=== PATIENT | female | born 1960 | race Caucasian/White ===

== ENCOUNTER 2017-09-23 11:26 | Day surgery (SDC) | payer MEDICAID, SELFPAY ==
[2017-09-23] VITALS (7 sets, daily range): BP systolic 98–113; BP diastolic 65–75; PULSE 68–81; RESP 16–18; TEMP 36.4–36.9; O2SAT 95–99; BMI 30.4
[2017-09-23] MEDS: Triamcinolone Acetonide 40 MG/ML Vial (12:54)
[2017-09-23] MEDS: Bupivacaine Mpf 0.5% 30 ML VIAL (13:11)
--- NOTE | 2017-09-23 13:18 | PCM.IMDPSTOP ---
Immediate Post-Op Note Date of Procedure: 09/23/17 Primary Surgeon/Physician: Timbo Guthrie DPM continuous absorption process operator: Timbo Guthrie Pre-Operative Diagnosis: plantar fasciitis right Post-Operative Diagnosis: plantar fasciitis, right foot. left foot pain Surgery/Procedure Performed:: plantar fascia injection, right foot Description of Surgical Findings:: consistent with injection Estimated Blood Loss: 0 ml Specimen's removed: none Drains: none Type of Anesthesia:: MAC ASA Class: ASA2 Mod Systematic Disease - Admit VTE Documentation VTE Present on Admission: No - n/a VTE Pharm Prophylaxis ordered?: No
--- NOTE | 2017-09-23 13:22 | OP.PN_ITS ---
Immediate Post-Op Note Date of Procedure: 09/23/17 Primary Surgeon/Physician: Timbo Guthrie DPM senior talent acquisition specialist: Timbo Guthrie Pre-Operative Diagnosis: plantar fasciitis right Post-Operative Diagnosis: plantar fasciitis, right foot. left foot pain Surgery/Procedure Performed:: plantar fascia injection, right foot Description of Surgical Findings:: consistent with injection Estimated Blood Loss: 0 ml Specimen's removed: none Drains: none Type of Anesthesia:: MAC ASA Class: ASA2 Mod Systematic Disease - Admit VTE Documentation VTE Present on Admission: No - n/a VTE Pharm Prophylaxis ordered?: No
--- NOTE | 2017-09-23 13:40 | RAD_ITS ---
STUDY: X-RAY - LEFT FOOT CLINICAL: Female, 57 years old. Pain. TECHNIQUE: 3 view(s) of the foot. COMPARISON: None. FINDINGS: Normal talus, calcaneus, and tarsal bones. Normal visualized subtalar, talonavicular, calcaneocuboid, tarsal and tarsometatarsal articulations. Normal metatarsi. Normal metatarsophalangeal joint of the great toe. There is a bipartite fibula sesamoid. Normal interphalangeal joint of the great toe. Normal phalanges of the great toe. Normal second through fifth metatarsophalangeal joints. Normal interphalangeal joints and phalanges of the lesser toes. The soft tissue structures are unremarkable. RAD/Foot min 3 Views IMPRESSION: Normal x-ray examination of the foot. Electronically Signed: Asad Cardona MD at 15:11 EST Tel [phone], Service support ,
--- NOTE | 2017-09-24 13:42 | OP.PCM_ITS ---
Report of Operation Date of Procedure: 09/23/17 Pre-Operative Diagnosis: plantar fasciitis right Post-Operative Diagnosis: plantar fasciitis, right foot. left foot pain Surgery/Procedure Performed:: plantar fascia injection, right foot Description of Surgical Findings:: consistent with injection power brake rebuilder: Timbo Guthrie Type of Anesthesia:: MAC Specimen's removed: none Drains: none Estimated Blood Loss (mL): 0 ml Description of Procedure: patient is a very pleasant 57 year old female who suffers from chronic right heel pain for many months. she has tried stretching, physical therapy, icing, nsaids prn and has recently purchased powerstep orthotics that were ordered months ago. she continues to have pain to right heel. I have ordered mri that shows chronic thickening of plantar fascia. I have discussed right plantar fascial injection. I have discussed this being another form of conservative care for plantar fasciitis. she is interested in pursuing but she is very apprehensive regarding needles and would prefer to be asleep if she is going to have this done. I did discuss with anesthsia department who agrees to proceed. all risks and benefits and alternatives were discussed. patient understands that this injection does not guarantee relief of her symptoms. all questions have been answered. no guarantees expressed patient was transferred from pre-op holding area to operating room and placed on operating room in supine position. she was placed under mac anesthesia. time out was performed. patient properly identified. procedure site marked. Under aseptic technique an injection was performed to the right heel using a mixture of ? cc of 0.5 % Marcaine plain, ? of kenalog and ? cc of dexamethazone band aid was applied. patient awakened and found to be in stable condition. she did start complaining of left foot pain on day of injection. will order xray in pacu. f/u in 1 month
== END 2017-09-23 14:15 | disposition home or self-care (01) ==
LOC: SDC 11:27 → AC 11:28
PROVIDERS: Family Provider Family Medicine; PCP Family Medicine; Visit Provider Podiatrist Foot & Ankle Surgery
PROC: (CPT 20605; principal; 2017-09-23 12:50)
DX: M72.2 Plantar fascial fibromatosis (principal); M79.672 Pain in left foot; F41.9 Anxiety disorder, unspecified; F31.9 Bipolar disorder, unspecified; K21.9 Gastro-esophageal reflux disease without esophagitis; Z79.899 Other long term (current) drug therapy; Z87.891 Personal history of nicotine dependence; J45.909 Unspecified asthma, uncomplicated; Z55.0 Illiteracy and low-level literacy; M19.90 Unspecified osteoarthritis, unspecified site
CPT/HCPCS: 20550; 73630; J7120

== ENCOUNTER 2018-02-06 09:56 | Emergency (ER) | payer MEDICAID, SELFPAY ==
[2018-02-06 09:57] VITALS: BP 117/72; PULSE 86; RESP 17; TEMP 37.2; O2SAT 94
--- NOTE | 2018-02-06 10:10 | RAD_ITS ---
STUDY: X-RAY - RIGHT KNEE REASON FOR EXAM: Female, 57 years old. Twisting injury. Medial pain. TECHNIQUE: 3 view(s) of the knee. COMPARISON: None. FINDINGS: Normal visualized distal femur. Normal visualized proximal tibia and fibula. Normal proximal tibiofibular articulation. Narrowing of the medial femorotibial compartment. Normal lateral femorotibial compartment. Normal patellofemoral articulation. The soft tissue structures are unremarkable. RAD/Knee 3 Views IMPRESSION: Mild narrowing of the medial femorotibial compartment due to chondromalacia of the right knee. Electronically Signed: Josh Garcia MD at 10:42 EDT , Service support ,
[2018-02-06] MEDS: HYDROcodone Bitartrate/Apap 5/325 Tablet PO (10:14)
--- NOTE | 2018-02-06 10:51 | ED.VISSUMM ---
- ER Visit Summary Date of Service: 02/06/18 Chief Complaint: [Injury right knee] History of Present Illness: The patient is a 57 F [presents to the emergency department with complaint of an injury to her right knee that occurred yesterday. Patient states she was at [employer] jumping on a trampoline and as she was getting off her knee bent in medially and her right ankle went out to the side causing her severe pain in her right knee. Patient unable to bear weight afterwards. Patient had severe pain throughout the night.] Physical Examination: [Right knee-patient has no obvious effusion or soft tissue swelling. Patient has tenderness over the medial joint line on exam. She has good range of motion flexion extension of the knee. She is neurovascular intact distally with normal station normal cap refill ligamentous exam very difficult due to the fact the patient does not tolerate exam well.] Test Results: [X-rays of the left knee showed mild narrowing of the medial femoral-tibial compartment due to chondromalacia.] Emergency Department Course and Treatment: [Patient was given crutches and a knee immobilizer as well as one [place]] Treatment Plan: [Patient has appointment with orthopedics for follow-up in 4-5 days.] Disposition: [Discharged home in stable condition] Impression: [Right knee sprain-possible internal derangement] This note was generated with [employer] dictation software. It may contain incorrect words, spelling, and punctuation that were not noted in review of the chart prior to signing ED Disposition - Plan for ED Patient: Chief Complaint: Lower Extremity Injury Referrals: Jef Jimenez MD [Primary Care Provider] -
--- NOTE | 2018-02-06 10:53 | ED.DEP ---
ED Disposition - Plan for ED Patient: Chief Complaint: Lower Extremity Injury Instructions: ED Meniscal Injury Knee Poss Prescriptions: Hydrocodone/Acetaminophen [[place] 5-325 Tablet] 1 - 2 ea PO 4X/DAY PRN PRN 5 Days #20 tab PRN Reason: Pain Referrals: Jef Jimenez MD [Primary Care Provider] - Mk Pantoja DO [STAFF PHYSICIAN] - 3-5 Days
[2018-02-06 11:31] VITALS: BP 123/73; PULSE 70; RESP 18; O2SAT 96
== END 2018-02-06 11:37 | disposition home or self-care (01) ==
LOC: ED 10:55
PROVIDERS: Emergency Provider Emergency Medicine; Family Provider Family Medicine; PCP Family Medicine
DX: S83.91XA Sprain of unspecified site of right knee, initial encounter (principal); M94.261 Chondromalacia, right knee; X50.1XXA Overexertion from prolonged static or awkward postures, initial encounter; Y93.44 Activity, trampolining; Y92.9 Unspecified place or not applicable
CPT/HCPCS: 73562; 99284

== ENCOUNTER 2018-04-30 13:31 | Emergency (ER) | payer MEDICAID, SELFPAY ==
[2018-04-30 13:31] VITALS: BP 132/78; PULSE 92; RESP 18; TEMP 36.5; O2SAT 97
[2018-04-30 13:33] VITALS: BP 132/78; PULSE 90; RESP 18; TEMP 36.5; O2SAT 97; BMI 30.3
--- NOTE | 2018-04-30 15:32 | ED.DCSUM_ITS ---
- ER Visit Summary Date of Service: 04/30/18 Chief Complaint: Bloody mucousy mushy stool History of Present Illness: The patient is a 58 F who contacted her primary care physician and informed him that she was having bloody mucousy mushy stool and he recommended she present to the emergency department for evaluation. She had one episode prior to arrival. She has not felt well for the past 3 days. She states she is achy and feels rundown. She reports she had an influenza vaccine 5 days ago. She does complain of headache without photophobia, blurred vision, change in vision or double vision. She reports right ear pain. She denies muffled or decreased hearing or tinnitus. She does complain of sore throat. She denies change in voice or difficulty swallowing. She reports intermittent chest pain that is not exertional related for the past 1.5 years. She does report nausea without vomiting. She does report cough which is nonproductive. She denies orthopnea or PND. She denies dyspnea or dyspnea on exertion. She states she has a thumping sensation which she localizes to the suprapubic region. She denies dysuria, frequency, urgency or hematuria. She denies history of inflammatory bowel disorder. There is a remote history of diverticulitis. She does report family history of autoimmune disorder. She reports warm sensation with sweats for the past 1-1/2 years. She denies weight loss. She had a 15 pound weight gain in the past month and a 45 pound weight gain in the past 2-3 months. She denies any joint swelling or pain. She denies rash or any skin lesions. Physical Examination: Vital signs noted and blood pressure slightly elevated 132/78. Head is atraumatic normocephalic. Pupils are equal round reactive. Extraocular muscles are intact. TMs are pearly white with landmarks noted. Nares patent with no drainage. Posterior pharynx without erythema or exudate. Uvula is midline. There is no dysphonia or dysphasia. Tongue and buccal mucosa are dry trachea is midline. There is no stridor with auscultation of the neck. Heart is regular without murmur, gallop or rub. S1 and S2 are normal. Lungs are clear to auscultation with good movement of air bilaterally. There is no reproducible chest pain. Abdomen is soft nontender with diminished bowel sounds and minimal discomfort to deep palpation suprapubic region. There is no CVA tenderness noted. There are no lesions or rash noted. Patient is alert and oriented ?3. Motor is 5 over 5. Sensory is intact. DTRs are symmetric with no clonus or Babinski sign. Cranial 2 through 12 are intact. Cerebellar testing is normal. There is no asymmetry, swelling, discoloration, leg vein distention, palpable cords or tenderness along the distribution of the deep venous system. Distal pulses are palpable upper and lower extremity and symmetric. Test Results: CBC, conference of metabolic panel are unremarkable. Urine macro is positive for leukoesterase and blood 25 and 10 respectively. Microscopic is negative. Emergency Department Course and Treatment: To evaluate patient's constellation of symptoms CBC, CMP and UA were obtained. The bloody mucousy mushy stool may be related to the fact that her puppy has been ill with profuse diarrhea. Her dog is also ill with green snot coming from his nose when he coughs. Clinically patient is dehydrated with dry tongue and mucosa. She received 1 L of normal saline. Treatment Plan: Patient was reassessed at 1645. She is smiling in no distress. Her symptoms resolved. She was informed of results. She was informed that she should buy gloves when she cleans up after her dog since the dog is ill with diarrhea. And she was informed that the aches and other symptoms she is having is a reaction to the flu shot. Disposition: Discharged to home with spouse in stable and improved condition Impression: 1. Diarrhea 2. Mild dehydration 3. Adverse reaction to flu vaccine This note was generated with [employer] dictation software. It may contain incorrect words, spelling, and punctuation that were not noted in review of the chart prior to signing ED Disposition - Plan for ED Patient: Disposition: Home or Assisted Living Chief Complaint: GI Bleed Instructions: ED Hematochezia Stable, ED Diarrhea Viral, Flu Shots for Adults Referrals: Jef Jimenez MD [Primary Care Provider] - As Needed
[2018-04-30 15:45] LABS: Hematocrit 41.7 % (37-47); Hemoglobin 14.2 g/dl (12.0-15.0); Mean Corp Hgb Conc 34.1 g/gl (32-36); Mean Corpuscular Hgb 30.5 pg (27.0-32.0); Mean Corpuscular Volume 89.7 fL (81-99); Mean Platelet Vol. 8.8 fl (6.2-12.0); Platelet Count 239 K/mm3 (150-450); RBC Distribution Width CV 12.8 % (11.6-14.6); RBC Distribution Width SD 42.1 fl (35.1-43.9); Red Blood Count 4.65 M/mm3 (4.2-5.4)
[2018-04-30 15:46] LABS: Scan Indicated on CBC? Y/N NO
[2018-04-30] MEDS: 0.9% Normal Saline 1,000 ML 1000 ML IV (15:47)
[2018-04-30 15:55] LABS: Bacteria 0 SEEN /hpf (None Seen); Mucous, Urine 0 SEEN /hpf (<or=2+); Red Blood Cells-Urine 0 SEEN /hpf (0-5); Squamous Epithelial Cells - UA 0 SEEN /hpf (5-10); White Blood Cells 0 SEEN /hpf (0-5)
[2018-04-30 16:00] LABS: AST(SGOT) 24 U/L (15-37); Alanine Aminotransfer ALT/SGPT 48 U/L (13-56); Albumin, Serum 3.9 g/dL (3.2-5.0); Alkaline Phosphatase 104 U/L (45-117); Anion Gap 5 (5-15); BUN 17 mg/dL (7-18); BUN/Creat Ratio 26.3 RATIO (10-20); Calcium,Total 9.5 mg/dL (8.5-10.1); Chloride 105 mmol/L (98-107); Creatinine, Serum 0.65 mg/dL (0.55-1.02); EST Glomerular Filtration Rate 100 mL/min (>60); Est Glom Filt Rate - Afr Amer 121 mL/min (>60); Estimated Creatinine Clearance 82.46 ml/min; Globulin 3.9 g/dL (2.2-4.2); Glucose 92 mg/dL (74-106); Protein, Total 7.8 g/dL (6.4-8.2); Sodium Level 139 mmol/L (136-145)
[2018-04-30 16:20] LABS: Color, Urine Yellow (Yellow); Glucose, Dipstick Normal (Normal); Ketone-Dipstick Negative (Negative); Leukocyte Esterase-Dipstick 25 /ul (Negative); Nitrite-Dipstick Negative (Negative); Occult Blood-Urine 10 /ul (Negative); Protein-Dipstick Negative (Negative); Specific Gravity, Urine 1.015 (1.002-1.030); Urine Bilirubin Dipstick Negative (Negative); Urine Clarity Cloudy (Clear); Urine Urobilinogen Normal (Normal)
[2018-04-30 16:47] LABS: Amorphous Sediment 2+
[2018-04-30 17:06] VITALS: BP 146/83; PULSE 81; RESP 16; O2SAT 98
== END 2018-04-30 17:07 | disposition home or self-care (01) ==
PROVIDERS: Emergency Provider Emergency Medicine; Family Provider Family Medicine; PCP Family Medicine
DX: R19.7 Diarrhea, unspecified (principal); E86.0 Dehydration; T50.B95A Adverse effect of other viral vaccines, initial encounter; H92.01 Otalgia, right ear; J34.89 Other specified disorders of nose and nasal sinuses; J02.9 Acute pharyngitis, unspecified; R05 Cough; R11.0 Nausea; R10.9 Unspecified abdominal pain; E66.9 Obesity, unspecified; F41.9 Anxiety disorder, unspecified; K21.9 Gastro-esophageal reflux disease without esophagitis; Z87.19 Personal history of other diseases of the digestive system; Z87.891 Personal history of nicotine dependence
CPT/HCPCS: 80053; 81001; 85027; 96360; 99283; J7030; A4216

== ENCOUNTER 2018-06-04 10:46 | Emergency (ER) | payer MEDICAID, SELFPAY ==
[2018-06-04 10:47] VITALS: BP 138/79; PULSE 76; RESP 18; TEMP 36.6; O2SAT 99; BMI 27.8
--- NOTE | 2018-06-04 10:50 | ED.RN ---
NOTE PT DROVE SELF TO ED TALKING ON PHONE IN TRIAGE.
--- NOTE | 2018-06-04 11:13 | ED.VISSUMM ---
- ER Visit Summary Date of Service: 06/04/18 Chief Complaint: Headache History of Present Illness: The patient is a 58 F no significant past medical history. Currently the patient for the last 3 weeks has been on a strict weight loss program. She takes in only 700 meli a day. States she has been feeling dehydrated. Was actually seen in the ER for dehydration a week or so ago. States 5 days ago she awoke in the morning with a headache but not because of the headache. She has had a diffuse headache since that time. She denies any falls or head trauma. She is on no blood thinners. She denies any fever. No neck pain. No neurological changes. No weakness or numbness. No ataxia. There is no significant family history of intracranial bleeds or aneurysms. She does not have a significant history for headaches. She also requested that I check some labs due to the diet she is on. Physical Examination: Well-appearing middle-age female. No acute distress. Vital signs are stable afebrile. H EENT exam unremarkable. Pupils round reactive light. Extra motions are intact. No facial droop. Normal speech. No facial or scalp trauma. Neck nontender. No meningismus. No lymphadenopathy. Lungs clear to auscultation bilaterally. Heart regular rate and rhythm rate about 75 no murmur. Abdomen soft nontender. Patient moving all 4 extremities. The neurovascular intact. She has equal symmetrical 5 out of 5 dye machine tender strength. Dorsi and plantar flexion intact. Back nontender. Skin unremarkable. Neurologically she is awake alert. Acting appropriately. NIH is 0. Fingertip to nose and heel to sep[place]a all within normal limits. Test Results: CBC is normal with a white count of 4. Hemoglobin of 14. Electrolytes unremarkable normal BUN and creatinine. Normal gap. Glucose 71. Emergency Department Course and Treatment: Patient treated with a liter of normal saline IV Toradol and Zofran. Repeat exam patient is doing well at 1224. Headache is improving. Neurologically she remains intact. Treatment Plan: Fluids and rest. Tylenol Motrin for pain. Disposition: Discharge Impression: Acute cephalgia This note was generated with [employer] dictation software. It may contain incorrect words, spelling, and punctuation that were not noted in review of the chart prior to signing ED Disposition - Plan for ED Patient: Chief Complaint: Headache Referrals: Jef Jimenez MD [Primary Care Provider] -
--- NOTE | 2018-06-04 11:16 | ED.DCSUM_ITS ---
- ER Visit Summary Date of Service: 06/04/18 Chief Complaint: Headache History of Present Illness: The patient is a 58 F no significant past medical history. Currently the patient for the last 3 weeks has been on a strict weight loss program. She takes in only 700 meli a day. States she has been feeling dehydrated. Was actually seen in the ER for dehydration a week or so ago. States 5 days ago she awoke in the morning with a headache but not because of the headache. She has had a diffuse headache since that time. She denies any falls or head trauma. She is on no blood thinners. She denies any fever. No neck pain. No neurological changes. No weakness or numbness. No ataxia. There is no significant family history of intracranial bleeds or aneurysms. She does not have a significant history for headaches. She also requested that I check some labs due to the diet she is on. Physical Examination: Well-appearing middle-age female. No acute distress. Vital signs are stable afebrile. H EENT exam unremarkable. Pupils round reactive light. Extra motions are intact. No facial droop. Normal speech. No facial or scalp trauma. Neck nontender. No meningismus. No lymphadenopathy. Lungs clear to auscultation bilaterally. Heart regular rate and rhythm rate about 75 no murmur. Abdomen soft nontender. Patient moving all 4 extremities. The neurovascular intact. She has equal symmetrical 5 out of 5 lighter captain strength. Dorsi and plantar flexion intact. Back nontender. Skin unremarkable. Neurologically she is awake alert. Acting appropriately. NIH is 0. Fingertip to nose and heel to sepul[place]a all within normal limits. Test Results: CBC is normal with a white count of 4. Hemoglobin of 14. Electrolytes unremarkable normal BUN and creatinine. Normal gap. Glucose 71. Emergency Department Course and Treatment: Patient treated with a liter of normal saline IV Toradol and Zofran. Repeat exam patient is doing well at 1224. Headache is improving. Neurologically she remains intact. Treatment Plan: Fluids and rest. Tylenol Motrin for pain. Disposition: Discharge Impression: Acute cephalgia This note was generated with [employer] dictation software. It may contain incorrect words, spelling, and punctuation that were not noted in review of the chart prior to signing ED Disposition - Plan for ED Patient: Chief Complaint: Headache Referrals: Jef Jimenez MD [Primary Care Provider] -
[2018-06-04] MEDS: 0.9% Normal Saline 1,000 ML 1000 ML IV (11:27)
[2018-06-04] MEDS: Ondansetron 4 MG/2 ML Vial IV (11:27)
[2018-06-04] MEDS: Ketorolac 30 MG/ML Syringe IV (11:27)
[2018-06-04 11:35] LABS: Absolute Lymphocyte Count 1.63 X10^3/ul (0.83-4.51); Absolute Neutrophil Count 2.1 X10^3/uL (2.0-7.7); Basophil# 0.05 X10^3/uL; Basophil% 1.2 % (0-1); Eosinophils% 4.7 % (0-5); Hemoglobin 14.6 g/dl (12.0-15.0); Lymphocyte # 1.63 X10^3/ul (4.0); Lymphocyte % 38.2 % (19-41); Mean Corp Hgb Conc 33.2 g/gl (32-36); Mean Corpuscular Hgb 29.8 pg (27.0-32.0); Mean Corpuscular Volume 89.8 fL (81-99); Mean Platelet Vol. 9.8 fl (6.2-12.0); Monocyte# 0.26 X10^3/uL; Monocyte% 6.1 % (0-10); Neutrophil # 2.13 X10^3/uL (2.7-7.7); Neutrophil % 49.8 % (47-70); Platelet Count 195 K/mm3 (150-450); RBC Distribution Width SD 42.4 fl (35.1-43.9); White Blood Count 4.3 K/mm3 (4.4-11.0)
[2018-06-04 11:36] LABS: POSITIVE COUNT NO; POSITIVE DIFFERENTIAL NO; POSITIVE MORPHOLOGY NO
[2018-06-04 11:45] LABS: Anion Gap 11 (5-15); BUN 10 mg/dL (7-18); BUN/Creat Ratio 16.4 RATIO (10-20); Calcium,Total 9.5 mg/dL (8.5-10.1); Chloride 104 mmol/L (98-107); Creatinine, Serum 0.61 mg/dL (0.55-1.02); EST Glomerular Filtration Rate 107 mL/min (>60); Est Glom Filt Rate - Afr Amer 130 mL/min (>60); Estimated Creatinine Clearance 87.87 ml/min; Glucose 71 mg/dL (74-106); Potassium 3.8 mmol/L (3.5-5.1); Sodium Level 140 mmol/L (136-145)
--- NOTE | 2018-06-04 12:26 | ED.DEP ---
ED Disposition - Plan for ED Patient: Disposition: Home or Assisted Living Chief Complaint: Headache Instructions: ED Cephalgia Unspecified Referrals: Jef Jimenez MD [Primary Care Provider] - 3-5 Days if not improving Additional Instructions: Plenty of fluids and rest. You know your on the diet you may to increase your caloric intake daily. Follow-up your primary care physician if not improving.
[2018-06-04 12:52] VITALS: BP 108/67; PULSE 59; RESP 14; O2SAT 99
--- NOTE | 2018-06-04 17:23 | ED.RN ---
Pt called in after leaving stating she still had a headache. I looked up Dr Rausch's dictation and encouraged pt ro increase fluids and try tylenol as instructed. She agreed. i also encouraged pt to consider increasing her daily calorie intake as it was dictated to be 700cal/day.
== END 2018-06-04 12:53 | disposition home or self-care (01) ==
PROVIDERS: Emergency Provider Emergency Medicine; Family Provider Family Medicine; PCP Family Medicine
DX: R51 Headache (principal)
CPT/HCPCS: 80048; 85025; 96361; 96374; 96375; 99283; J7030; A4216; J2405

== ENCOUNTER 2018-07-23 04:58 | Emergency (ER) | payer MEDICAID, SELFPAY ==
[2018-07-23 04:59] VITALS: BP 156/91; PULSE 72; RESP 16; TEMP 36.6; O2SAT 100; BMI 25.7
[2018-07-23] MEDS: Naproxen 500 MG Tablet PO (05:19)
--- NOTE | 2018-07-23 05:30 | RAD_ITS ---
STUDY: X-RAY - LEFT SHOULDER REASON FOR EXAM: Female, 58 years old. Patient fell. Pain TECHNIQUE: 4 view(s) of the shoulder. COMPARISON: None. FINDINGS: Normal glenohumeral articulation. Normal acromioclavicular joint. Normal acromion. Normal humeral head and visualized proximal humerus. The soft tissue structures are unremarkable. Normal visualized pulmonary apex. RAD/Shoulder min 2 Views IMPRESSION: Normal x-ray examination of the shoulder. No acute fracture Electronically Signed: Prudencio Ramos MD at 5:51 EST Tel , Service support ,
--- NOTE | 2018-07-23 05:30 | RAD_ITS ---
STUDY: X-RAY - RIGHT HIP REASON FOR EXAM: Female, 58 years old. Patient fell TECHNIQUE: 2 views of the hip. COMPARISON: None. FINDINGS: Normal femoral head, neck, intertrochanteric region and visualized proximal femur. Normal acetabulum. Normal hip joint. Normal visualized superior and inferior pubic rami and ischial tuberosities. RAD/HIP, UNI W/ Pelvis 2-3 Views IMPRESSION: Normal x-ray examination of the hip. No fracture Electronically Signed: Prudencio Ramos MD at 5:52 EST Tel , Service support ,
--- NOTE | 2018-07-23 06:06 | ED.VISSUMM ---
- ER Visit Summary Date of Service: 07/23/18 Chief Complaint: Right hip pain History of Present Illness: The patient is a 58 F who presents with right hip pain. She also complains of left shoulder pain. She initially injured her right hip when she stepped into a hole back in January. She had been doing better. However she was dancing 4 days ago and fell reinjuring her right hip. She complains of pain in the right groin. However she also complains of some lower back and buttock pain with radiation down the right leg. She also complains of pain to her left shoulder and states that something was sticking up and points to her AC joint. She has not taken any medications. She describes her pain as excruciating. No fevers chest pain shortness of breath abdominal pain. No loss of bowel or bladder control. No paresthesias weakness or loss of function. Physical Examination: Afebrile hypertensive but vitals otherwise unremarkable Patient appears anxious Heart regular rate and rhythm Lungs clear Active full range of motion of the left shoulder she does have some tenderness over the AC joint Active full range of motion of the right lower extremity 5 out of 5 dorsiflexion, plantarflexion, extensor hallucis longus, easily palpable dorsalis pedis pulse, normal sensation to light touch, active full range of motion of the hip although she does have some pain with flexion she has no focal tenderness Patient has some pain over the right SI joint Test Results: X-rays were obtained of the left shoulder and the right hip and pelvis. Both are normal. Emergency Department Course and Treatment: Patient was given naproxen here for pain with improvement of symptoms. I believe the patient has left shoulder sprain and right hip sprain. With the pain in her buttock and going down her right leg she likely has a component of lumbar radiculopathy as well. Patient was given a prescription for naproxen and advised on supportive care. She understands to return for new or worsening symptoms and otherwise to follow-up with her primary care physician. She is agreeable to this plan. Patient discharged. Treatment Plan: [] Disposition: Discharge Impression: Left shoulder sprain Right hip sprain This note was generated with [employer] dictation software. It may contain incorrect words, spelling, and punctuation that were not noted in review of the chart prior to signing ED Disposition - Plan for ED Patient: Chief Complaint: Lower Extremity Injury Referrals: Jef Jimenez MD [Primary Care Provider] -
--- NOTE | 2018-07-23 06:09 | ED.DEP ---
ED Disposition - Plan for ED Patient: Chief Complaint: Lower Extremity Injury Instructions: ED Sprain Hip, ED Sprain Shoulder Referrals: Jef Jimenez MD [Primary Care Provider] -
[2018-07-23 06:16] VITALS: BP 139/74; PULSE 91; RESP 16; O2SAT 99
--- NOTE | 2018-07-23 06:17 | ED.RN ---
THIS NURSE REVIEWED D/C INSTRUCTIONS WITH PT. PT VERBALIZED UNDERSTANDING OF INSTRUCTIONS. PT DENIES FURTHER NEEDS OR QUESTIONS AT THIS TIME. PT AMBULATES FROM ROOM ON OWN WITHOUT ASSISTANCE FROM STAFF
== END 2018-07-23 06:18 | disposition home or self-care (01) ==
LOC: ED 05:41
PROVIDERS: Emergency Provider Emergency Medicine; Family Provider Family Medicine; PCP Family Medicine
DX: S43.402A Unspecified sprain of left shoulder joint, initial encounter (principal); S73.101A Unspecified sprain of right hip, initial encounter; W19.XXXA Unspecified fall, initial encounter; Y93.41 Activity, dancing; Y92.9 Unspecified place or not applicable
CPT/HCPCS: 73030; 73502; 99283

== ENCOUNTER 2018-09-22 10:30 | Outpatient (RCR) | payer MEDICAID, SELFPAY ==
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
--- NOTE | 2019-02-23 11:35 | HP.PTDCNRP_ITS ---
HP - Discharge Summary (1) - Patient Information CANDACE REYES was seen in my office for initial evaluation on 09/07/18. The following Plan of Care was established for this patient: Initial Frequency: 2x /Week Initial Duration: 4 Weeks - Anticipated Interventions Patient/Client Instruction: Educate patient on: Condition, Plan of Care For the Purpose of:: To decrease pain, To increase ROM, To improve muscle perf ormance and motor function, To improve ability to perform ADL's, To increase tolerance to activity/condition/position, To improve ability of physical actions for home/community/work/leisure, To improve gait and locomotor functions, To improve health of tissue, To decrease soft tissue restriction, To increase flexibility/ROM, To improve ability to perform tasks related to life management Therapeutic Exercise to Include: Strength training, Body mechanics, Postural training, Flexibilty training, In an aquatic setting, Dynamic Lumbar Stabilization, Ezio Exercises For the Purpose of:: To decrease pain, To increase ROM, To improve muscle performance and motor function, To improve ability to perform ADL's, To increase tolerance to activity/condition/position, To improve ability of physical actions for home/community/work/leisure, To improve health of tissue, To decrease soft tissue restriction, To increase flexibility/ROM, To improve ability to perform tasks related to life management This patient was last seen in our office 09/22/18. Pertinent comments regarding their Physical therapy will appear below: Patient was seen for PT in [facility] 1 visits for diagnosis of low back pain and weakness.Thus patient d/c after NS. At this point I will be discontinuing this patient from physical therapy. I would be happy to see this patient again in the future if found appropriate by the physician. Thank you! Tomasz Guido, PT, Cert MDT, OCS
== END 2018-09-22 19:00 | disposition home or self-care (01) ==
LOC: PT 10:30
PROVIDERS: Family Provider Family Medicine; PCP Family Medicine; Referring Provider Anesthesiology Pain Medicine; Visit Provider Anesthesiology Pain Medicine
DX: M54.5 Low back pain (principal); M79.606 Pain in leg, unspecified; R53.1 Weakness
CPT/HCPCS: 97110; 97162; 97530

== ENCOUNTER 2019-04-12 08:26 | Emergency (ER) | payer MEDICAID, SELFPAY ==
[2019-04-12 08:27] VITALS: BP 106/77; PULSE 100; RESP 17; TEMP 36.9; O2SAT 97; BMI 21.4
--- NOTE | 2019-04-12 08:43 | RAD_ITS ---
STUDY: X-RAY CHEST REASON FOR EXAM: Female, 59 years old. 3 day history of wheezing and productive cough. Chest pain. TECHNIQUE: PA and lateral views of the chest. COMPARISON: Comparison is made with prior study dated January 31, 2017. FINDINGS: There now is evidence of increased markings in both lower lobes. This is worse in the lingular segment of the left upper lobe. An infectious process should be rule out. Follow-up is recommended. Hyperinflation. There is no demonstrated pleural abnormality. Normal size heart. Normal mediastinum and kendrick. Normal visualized pulmonary arteries. There is atherosclerotic tortuosity of the aortic arch and descending thoracic aorta. Levoscoliosis and degenerative changes of the lumbar spine. Normal visualized ribs, clavicles, and shoulders. Prior cholecystectomy. RAD/Chest PA and Lateral IMPRESSION: Increased markings in both lung bases worse in the lingular segment of the left upper lobe. Follow-up is recommended. Electronically Signed: Asad Cardona, at 10:03 EDT , Service support ,
--- NOTE | 2019-04-12 08:48 | ED.VIS.GEN ---
History of Present Illness Chief Complaint: Chest Pain Informant: Patient Onset: Days Context: Sudden Onset Timing: Intermittent Quality: Productive cough and pleuritic chest pain Location: Anterior central chest Current Severity: Mild Maximum Severity: Severe Worsened by: Turning to the right or left, coughing and deep breathing Relieved by: Nothing Associated Symptoms: Productive cough and wheezing Narrative: Patient is a 59-year-old female with past medical history of asthma who is a non-smoker and presents with chest pain that is central and anterior with pleuritic and muscular component for the past 2 to 3 days. She has had a cough for the past several days. States the cough is productive. She has not used her inhalers. She denies history of PE or DVT. She has no risk factors. She denies leg pain, swelling discoloration. She reports fever and temperature 99.7. She denies rhinorrhea, congestion or postnasal drainage. She denies sore throat. She does report change in voice. She denies ear pain or decreased hearing. She denies orthopnea or PND. She denies GI symptoms. Prior similar symptoms: No Recent Illness/Hospitalization: No - Past Medical History (1) History of asthma Status: Acute Past Medical History - Allergies and Home Meds Allergies/Adverse Reactions: Allergies adhesive tape Allergy (Verified 04/12/19 08:27) Rash etodolac Allergy (Verified 04/12/19 08:27) Hives varenicline tartrate [From Chantix] Allergy (Verified 04/12/19 08:27) Unknown venom-honey bee Allergy (Verified 04/12/19 08:27) Other tramadol Adverse Reaction (Verified 04/12/19 08:27) Upset Stomach Primary Care Physician: Jef Jimenez MD [Primary Care Provider] - Prior records reviewed: No Past Medical History: - - Asthma Surgical History: noncontributory Lives: Spouse/ Significant Other Smoking Status: Former smoker Alcohol: None Drugs: None Review of Systems General: Reports: Chills, Fever. Denies: Malaise, Sweats, Weight loss Eyes: Denies: Visual changes - bilaterally, Blurred Vision - bilaterally ENT: Denies: Bilateral ear pain, Rhinorrhea, Sore throat Cardiovascular: Reports: Chest pain. Denies: Palpitations, Heart racing Respiratory: Reports: Cough, Sputum. Denies: Dyspnea, Dyspnea on exertion, Orthopnea, Paroxysmal nocturnal dyspnea Gastrointestinal: Denies: Abdominal pain, Nausea, Vomiting, Diarrhea, Melena, Hematochezia Musculoskeletal: Denies: Myalgias, Arthralgias, Neck pain, Back pain, Swelling, Extremity Pain, -, - Neurological: Denies: Headache, Weakness, Numbness Allergy: Denies: Uticaria, Swelling of the mouth, Swelling of the tongue, -, - Physical Exam Vital Signs/Narrative: Vital Signs Temp Pulse Resp BP Pulse Ox 04/12/19 08:27 98.4 F 100 17 106/77 97 Inital Vital Signs reviewed: Yes General: Well nourished, Well developed, No Acute Distress Head: Normocephalic, Atraumatic Eyes: Perrl, EOMI. Negative for: Pale conjunctiva, Scleral icterus ENT: Moist mucous membranes, No rhinorrhea, TM's clear Neck: Supple, Nontender, - - Trachea is midline and there is no stridor.. Negative for: No lymphadenopathy, No JVD Cardiovascular: Regular rate, Regular rhythm, No murmurs, Normal S1, Normal S2 Respiratory: No distress, Chest nontender, Wheezing - Bilaterally. Negative for: CTA bilaterally Abdomen: Soft, Nontender, Nondistended, Normal bowel sounds, No masses Extremities: Nontender, No edema. Negative for: Calf Tenderness Skin: Normal color, No rash, No Trauma. Negative for: Cyanosis, Diaphoresis, Jaundice Neurological: Alert, Oriented x3, Cranial nerves II-XII grossly intact, Normal Strength, Normal Sensation Psychological: Normal affect, Normal Mood Diagnostic/Tx/Re-eval Chest X-Ray - ED: 2 View, Read by ED Physician, Normal, Heart, Mediastinum, Bony Structures, Right Infiltrate, - - There is some slight increased markings on the left compared to chest x-ray dated January 31, 2017. - Medical Decision Making With history of productive cough will obtain chest x-ray to assess for bronchitis versus pneumonia. She is wheezing she was treated with albuterol. Will reassess after chest x-ray is available for interpretation and treatment. Since patient is afebrile, not tachypneic blood work was not obtained. Will treat for community acquired pneumonia. She received first dose of antibiotics in the department and was given a prescription for levofloxacin. ED Disposition - Plan for ED Patient: Disposition: Home or Assisted Living Diagnosis: Community acquired pneumonia Instructions: PNEUMONIA (Adult) Prescriptions: Levofloxacin [Levaquin] 750 mg PO DAILY #6 tab Transmission Status: Pending to [facility]/pharmacy #[id number] Referrals: Jef Jimenez MD [Primary Care Provider] - 3-5 Days Additional Instructions: Take antibiotics until gone. Use albuterol inhaler every 2-4 hours while awake for the next 2 to 3 days then every 4-6 hours as needed for wheezing/shortness of breath. Your prescription was electronically transmitted to [facility] pharmacy located on back [facility].
[2019-04-12] MEDS: Albuterol 2.5 MG/3 ML VIAL.NEB. INHALATION (08:52)
[2019-04-12 08:55] VITALS: PULSE 104; RESP 18; O2SAT 98
--- NOTE | 2019-04-12 09:51 | ED.VISSUMM ---
- ER Visit Summary Date of Service: 04/12/19 Chief Complaint: [] History of Present Illness: The patient is a 59 F [] Physical Examination: [] Test Results: [] Emergency Department Course and Treatment: [] Treatment Plan: [] Disposition: [] Impression: [] This note was generated with [employer] dictation software. It may contain incorrect words, spelling, and punctuation that were not noted in review of the chart prior to signing ED Disposition - Plan for ED Patient: Disposition: Home or Assisted Living Diagnosis: Community acquired pneumonia Instructions: PNEUMONIA (Adult) Prescriptions: Levofloxacin [Levaquin] 750 mg PO DAILY #6 tab Transmission Status: Received by [facility]/pharmacy #[id number] Albuterol Inhaler [Ventolin Hfa] 2 puff INHALATION Q4H PRN PRN #1 inhaler PRN Reason: Wheezing Transmission Status: Pending to [facility]/pharmacy #[id number] Referrals: Jef Jimenez MD [Primary Care Provider] - 3-5 Days Additional Instructions: Take antibiotics until gone. Use albuterol inhaler every 2-4 hours while awake for the next 2 to 3 days then every 4-6 hours as needed for wheezing/shortness of breath. Your prescription was electronically transmitted to [facility] pharmacy located on back [facility].
[2019-04-12] MEDS: levoFLOXacin 750 MG Tablet PO (09:56)
== END 2019-04-12 09:57 | disposition home or self-care (01) ==
PROVIDERS: Emergency Provider Emergency Medicine; Family Provider Family Medicine; PCP Family Medicine
DX: J18.9 Pneumonia, unspecified organism (principal); J45.909 Unspecified asthma, uncomplicated; Z87.891 Personal history of nicotine dependence
CPT/HCPCS: 71046; 94640; 99283

== ENCOUNTER 2019-04-18 15:21 | Emergency (ER) | payer MEDICAID, SELFPAY ==
[2019-04-18 15:22] VITALS: BP 139/78; PULSE 67; RESP 17; TEMP 36.5; O2SAT 100; BMI 21.1
--- NOTE | 2019-04-18 15:41 | ED.VISSUMM ---
- ER Visit Summary Date of Service: 04/18/19 Chief Complaint: Dizziness History of Present Illness: The patient is a 59 F who presents with dizziness that has been constant for the past 6 days. Patient states it feels like a spinning sensation. Patient states nothing makes it better or worse. Patient admits to subjective fevers, chills, and sweats. Patient also states she has palpitations where it feels like her heart is racing. Patient states she was seen here 6 days ago for the same complaint however, her review of of her records shows that she was here for shortness of breath and was treated for pneumonia. Patient states she finished her last dose of Levaquin today. Patient thinks this is was causing her dizziness. Patient does admit to some nausea and vomiting. Patient also admits to some neck and back pain. Physical Examination: Vital signs are stable. Patient is afebrile. Patient is in no acute distress. Pupils are equal, round, and reactive to light bilaterally. Extraocular muscles are intact. There is some mild nystagmus with right lateral gaze. Oral mucosa is pink and moist. Neck is supple. Trachea is midline. There is no JVD noted. Heart was regular rate and rhythm. Lungs are clear and equal bilateral. Abdomen is soft. Bowel sounds are normal. There is no tenderness. There is no guarding noted. Skin is warm dry. Cranial nerves II through XII are intact. There are no focal motor or sensory deficits noted. Test Results: CBC and basic metabolic profile within normal limits. PA and lateral chest x-ray was obtained. There is no acute cardiopulmonary process. This was interpreted by the radiologist and reviewed by myself. Emergency Department Course and Treatment: Patient was given IV fluids. Since the patient drove herself to the emergency department, she was given a dose of Zofran and meclizine here. Patient felt better on reevaluation. Patient states her dizziness has resolved. Patient was instructed to drink plenty of fluids. Patient was given a prescription for meclizine. Patient was instructed to follow-up with her primary care physician in 5 to 7 days. Patient understood and was agreeable with the plan. All questions were answered. Disposition: Discharge home Impression: 1. Vertigo This note was generated with [employer] dictation software. It may contain incorrect words, spelling, and punctuation that were not noted in review of the chart prior to signing ED Disposition - Plan for ED Patient: Disposition: Home or Assisted Living Diagnosis: Vertigo Instructions: VERTIGO, Unspecified Prescriptions: Meclizine HCl 25 mg PO Q8H PRN PRN #12 tab PRN Reason: Dizziness Prescription Printed Referrals: Jef Jimenez MD [Primary Care Provider] - 5-7 Days
[2019-04-18] MEDS: 0.9% Normal Saline 1,000 ML 1000 ML IV (15:50)
[2019-04-18] MEDS: Ondansetron 4 MG/2 ML Vial IV (15:51)
[2019-04-18] MEDS: Meclizine HCl 25 MG Tablet PO (15:51)
[2019-04-18 15:55] LABS: Absolute Lymphocyte Count 2.38 X10^3/uL (0.83-4.51); Basophil# 0.04 X10^3/uL; Basophil% 0.6 % (0-1); Eosinophil# 0.11 X10^3/uL; Eosinophils% 1.6 % (0-5); Hemoglobin 14.6 g/dL (12.0-15.0); Lymphocyte # 2.38 X10^3/ul (4.0); Lymphocyte % 34.1 % (19-41); Mean Corp Hgb Conc 33.2 g/dL (32-36); Mean Corpuscular Hgb 30.7 pg (27.0-32.0); Mean Corpuscular Volume 92.6 fL (81-99); Mean Platelet Vol. 8.9 fl (6.2-12.0); Monocyte# 0.48 X10^3/uL; Monocyte% 6.9 % (0-10); NRBC Flagged by Analyzer 0 % (0-5); Neutrophil # 3.95 X10^3/uL (2.7-7.7); Neutrophil % 56.5 % (47-70); Platelet Count 214 K/mm3 (150-450); RBC Distribution Width CV 11.9 % (11.6-14.6); RBC Distribution Width SD 40.9 fl (35.1-43.9); Red Blood Count 4.75 M/mm3 (4.2-5.4)
--- NOTE | 2019-04-18 16:00 | RAD_ITS ---
STUDY: X-RAY CHEST REASON FOR EXAM: Female, 59 years old. Dizziness TECHNIQUE: PA and lateral views of the chest. COMPARISON: Previous study of 04/12/2019 FINDINGS: The lungs are clear and expanded. There is no demonstrated pleural abnormality. Normal size heart. Normal mediastinum and kendrick. Normal visualized pulmonary arteries. Normal visualized aortic arch and descending thoracic aorta. There is a mild lower thoracic dextroscoliosis. Normal visualized ribs, clavicles, and shoulders. There is no demonstrated abnormality of the visualized soft tissue structures of the upper abdomen. RAD/Chest PA and Lateral IMPRESSION: Mild lower thoracic dextroscoliosis. No acute cardiopulmonary disease process is seen. Electronically Signed: uTshar Alva MD at 16:23 EDT , Service support ,
[2019-04-18 16:08] LABS: Anion Gap 8 (5-15); BUN 17 mg/dL (7-18); BUN/Creat Ratio 26.4 RATIO (10-20); Calcium,Total 9.6 mg/dL (8.5-10.1); Chloride 107 mmol/L (98-107); Creatinine, Serum 0.64 mg/dL (0.55-1.02); EST Glomerular Filtration Rate 100 mL/min (>60); Est Glom Filt Rate - Afr Amer 121 mL/min (>60); Estimated Creatinine Clearance 82.74 ml/min; Glucose 100 mg/dL (74-106); Potassium 4.1 mmol/L (3.5-5.1); Sodium Level 142 mmol/L (136-145)
[2019-04-18 17:31] VITALS: PULSE 65; RESP 16; O2SAT 100
== END 2019-04-18 17:37 | disposition home or self-care (01) ==
PROVIDERS: Emergency Provider Emergency Medicine; Family Provider Family Medicine; PCP Family Medicine
DX: R42 Dizziness and giddiness (principal); R07.9 Chest pain, unspecified; R00.2 Palpitations; R05 Cough; R06.00 Dyspnea, unspecified; M54.2 Cervicalgia; M54.9 Dorsalgia, unspecified; Z87.01 Personal history of pneumonia (recurrent)
CPT/HCPCS: 71046; 80048; 85025; 96361; 96374; 99285; J7030; A4216; J2405

== ENCOUNTER 2019-06-21 19:11 | Emergency (ER) | payer MEDICAID, SELFPAY ==
[2019-06-21 19:11] VITALS: BP 109/69; PULSE 81; RESP 16; TEMP 36.7; O2SAT 97; BMI 22.5
[2019-06-21] MEDS: HYDROcodone Bitartrate/Apap 5/325 Tablet PO (19:32)
--- NOTE | 2019-06-21 19:32 | RAD_ITS ---
STUDY: X-RAY - RIGHT ANKLE REASON FOR EXAM: Female, 59 years old. Injury TECHNIQUE: 3 view(s) of the ankle. COMPARISON: None. FINDINGS: Normal visualized distal tibia and fibula. Normal medial malleolus. There is cortical irregularity of the lateral malleolus tip. Normal tibiotalar articulation and ankle mortise. Normal visualized talus and calcaneus. The visualized subtalar, talonavicular, calcaneocuboid and tarsal articulations are normal. Significant lateral soft tissue swelling. RAD/Ankle min 3 Views IMPRESSION: There is cortical irregularity of the lateral malleolus tip with significant lateral soft tissue swelling. A small cortical chip fracture cannot be excluded. Electronically Signed: Marcin Kinney DO at 20:29 EST Tel [phone], Service support ,
--- NOTE | 2019-06-21 19:50 | ED.VIS.GEN ---
History of Present Illness Chief Complaint: Lower Extremity Injury Informant: Patient Onset: Today Context: Sudden Onset Timing: Continuous Quality: Pain Location: Lateral right ankle Current Severity: Mild Maximum Severity: Severe Worsened by: Movement and weightbearing Relieved by: Better if elevated Associated Symptoms: Difficulty ambulating Narrative: Patient is a middle-age woman presents because of injury to right ankle. She had a plantar inversion mechanism injury. She was skipping with her granddaughter to the mailbox. She slept. She complains of pain over the lateral right ankle. She denies prior injury. She denies paresthesia, anesthesia motors. She denies any knee pain. Prior similar symptoms: No Recent Illness/Hospitalization: No - Past Medical History (1) History of asthma Status: Acute Past Medical History - Allergies and Home Meds Allergies/Adverse Reactions: Allergies adhesive tape Allergy (Verified 04/18/19 15:22) Rash etodolac Allergy (Verified 04/18/19 15:22) Hives varenicline tartrate [From Chantix] Allergy (Verified 04/18/19 15:22) Unknown venom-honey bee Allergy (Verified 04/18/19 15:22) Other tramadol Adverse Reaction (Verified 04/18/19 15:22) Upset Stomach Primary Care Physician: Jef Jimenez MD [Primary Care Provider] - Prior records reviewed: Yes Surgical History: noncontributory Lives: Spouse/ Significant Other Smoking Status: Former smoker Alcohol: Rare Drugs: None Review of Systems Musculoskeletal: Reports: Swelling, Extremity Pain. Denies: Myalgias, Arthralgias, Neck pain, Back pain Skin: Denies: Rash, Abrasions, Wounds Neurological: Denies: Weakness, Parasthesia, Numbness Hematologic: Denies: Easy bruising, Easy bleeding Physical Exam Vital Signs/Narrative: Vital Signs Temp Pulse Resp BP Pulse Ox 06/21/19 19:11 98.1 F 81 16 109/69 97 Inital Vital Signs reviewed: Yes General: Well nourished, Well developed, No Acute Distress Head: Normocephalic, Atraumatic Eyes: Perrl, EOMI. Negative for: Pale conjunctiva, Scleral icterus Cardiovascular: Regular rate, Regular rhythm, No murmurs Respiratory: No distress Extremities: No edema, Tenderness - There is over the distal 4 cm of the lateral malleolus right ankle. The Achilles tendon is functionally intact. There is no lacks with drawer testing. There is pain palpation over the medial malleolus. There is no pain the patient over the base of the fifth metatarsal. DP and PT pulses are palpable.. Negative for: Nontender Skin: Normal color, No rash, Trauma. Negative for: Cyanosis, Diaphoresis, Jaundice Neurological: Alert, Oriented x3, Cranial nerves II-XII grossly intact, Normal Strength, Normal Sensation. Negative for: Normal Gait Psychological: Normal affect Diagnostic/Tx/Re-eval Chest X-Ray - ED: Read by ED Physician, - - View x-ray of the right ankle reveals soft tissue swelling. There is no fracture, subluxation or dislocation. There is no widening of the mortise. There is no fracture the base of the fifth metatarsal. 06/21/19 19:32 Ankle min 3 Views [RAD] Stat - Medical Decision Making Tray was obtained to evaluate for fracture versus sprain. Patient was treated with an Aircast and oral analgesia. ED Disposition - Plan for ED Patient: Disposition: Home or Assisted Living Diagnosis: Sprain of calcaneofibular ligament of right ankle Instructions: Sprain, Ankle, with X-Ray Prescriptions: Hydrocodone Bitart/Apap 5-325 [[place] 5MG-325MG] 1 tab PO Q6H PRN PRN 3 Days #10 tab PRN Reason: Pain Transmission Status: Received by [facility]/pharmacy #[id number] Referrals: Jef Jimenez MD [Primary Care Provider] - 1 Week if not improving Additional Instructions: Elevate right ankle. Definition of elevation is your ankle above your nose. Play ice 20 to 30 minutes per application 6-8 times a day. Remove Aircast to draw the alphabet with your foot 4-6 times a day. Wear Aircast during the day for stability
[2019-06-21 20:25] VITALS: RESP 16
--- NOTE | 2019-06-21 20:26 | ED.RN ---
REVIEWED D/C INSTRUCTIONS, FOLLOW UP CARE, AND S/S THAT WOULD WARRANT A RETURN TO THE ED WITH PT. PT VERBALIZED AN UNDERSTANDING AND DENIES FURTHER QUESTIONS FOR THIS RN. PT SKIN P/W/D, RESP EVEN AND UNLABORED, PT A&O X 3, NO DISTRESS NOTED. PT AMBULATED OUT OF ED, GAIT STEADY.
== END 2019-06-21 20:27 | disposition home or self-care (01) ==
PROVIDERS: Emergency Provider Emergency Medicine; Family Provider Family Medicine; PCP Family Medicine
DX: S93.411A Sprain of calcaneofibular ligament of right ankle, initial encounter (principal); X50.1XXA Overexertion from prolonged static or awkward postures, initial encounter; Y93.9 Activity, unspecified; Y92.9 Unspecified place or not applicable; J45.909 Unspecified asthma, uncomplicated; Z87.891 Personal history of nicotine dependence
CPT/HCPCS: 73610; 99283

== ENCOUNTER 2020-03-21 14:49 | Emergency (ER) | payer MEDICAID, SELFPAY ==
[2020-03-21 14:50] VITALS: BP 116/75; PULSE 70; RESP 18; TEMP 37.2; O2SAT 97; BMI 25.0
--- NOTE | 2020-03-21 15:12 | EKG12_ITS ---
Test Reason : DIZZINESS Blood Pressure : / mmHG Vent. Rate : 066 BPM Atrial Rate : 066 BPM P-R Int : 142 ms QRS Dur : 086 ms QT Int : 402 ms P-R-T Axes : -05 049 041 degrees QTc Int : 421 ms Normal sinus rhythm Normal ECG Confirmed by JUANITO KAUR MD ([id number]), associate editor KRISHNA GORMAN ([id number]) on 03/23/2020 10:52:51 AM Referred By: AIMEE Confirmed By:JUANITO KAUR MD
--- NOTE | 2020-03-21 15:13 | ED.DCSUM_ITS ---
History of Present Illness Chief Complaint: Dizziness Narrative: Patient is a 59-year-old female who presents with dizziness. She woke this morning and felt like the room was spinning. She has had associated nausea and vomiting. On review of prior records she has had 1 prior ER visit for vertigo. She also is currently on Bactrim for a infection at her navel. She attributes this to having recently swam in the [facility] [place]. No fevers. She denies any pain. No difficulty breathing. No headache. No numbness tingling or weakness. Denies medical history. Past Medical History - Allergies and Home Meds Allergies/Adverse Reactions: Allergies adhesive tape Allergy (Verified 03/21/20 14:52) Rash etodolac Allergy (Verified 03/21/20 14:52) Hives varenicline tartrate [From Chantix] Allergy (Verified 03/21/20 14:52) Unknown venom-honey bee Allergy (Verified 03/21/20 14:52) Other tramadol Adverse Reaction (Verified 03/21/20 14:52) Upset Stomach Primary Care Physician: Jef Jimenez MD [Primary Care Provider] - Past Medical History: None Surgical History: noncontributory Smoking Status: Former smoker Review of Systems All systems negative except as indicated General: Denies: Fever Eyes: Denies: Visual changes - bilaterally Cardiovascular: Denies: Chest pain Respiratory: Denies: Dyspnea Gastrointestinal: Reports: Nausea, Vomiting. Denies: Abdominal pain, Diarrhea Skin: Reports: Rash Neurological: Reports: - - Dizziness/vertigo. Denies: Headache Hematologic: Denies: Easy bruising Allergy: Denies: Uticaria Physical Exam Vital Signs/Narrative: Vital Signs Temp Pulse Resp BP Pulse Ox 03/21/20 14:50 98.9 F 70 18 116/75 97 Inital Vital Signs reviewed: Yes General: Well nourished Head: Normocephalic Eyes: EOMI ENT: Moist mucous membranes Neck: Supple Cardiovascular: Regular rate, Regular rhythm Respiratory: No distress, CTA bilaterally Abdomen: Soft, - - Patient has erythema and weeping/crusting at her umbilicus most consistent with impetigo Skin: Normal color Neurological: Alert Psychological: Normal affect Diagnostic/Tx/Re-eval Laboratory Results 03/21/20 03/21/20 15:20 15:20 WBC 5.5 RBC 4.24 Hgb 13.4 Hct 39.3 MCV 92.7 MCH 31.6 MCHC 34.1 RDW Std Deviation 44.1 H RDW Coeff of Phoebe 13.2 Plt Count 218 MPV 9.4 Immature Gran % (Auto) 0.400 Neut % (Auto) 68.3 Lymph % (Auto) 24.7 Robertson % (Auto) 5.7 Eos % (Auto) 0.7 Baso % (Auto) 0.2 Absolute Neuts (auto) 3.7 Absolute Lymphs (auto) 1.35 Nucleated RBC % 0 Sodium 143 Potassium 3.6 Chloride 112 H Carbon Dioxide 25.0 Anion Gap 6 BUN 13 Creatinine 0.69 Estim Creat Clear Calc 76.74 Est GFR (MDRD) Af Amer 111 Est GFR (MDRD) Non-Af 92 BUN/Creatinine Ratio 18.8 Glucose 119 H Calcium 9.0 Troponin I < 0.015 - Medical Decision Making EKG shows normal sinus rhythm at a rate of 66. Labs are normal. Patient was given IV fluids Zofran and meclizine. Patient is comfortable on reevaluation and reports improvement of symptoms. She was advised to stop Bactrim and just use topical antibiotic ointment on the rash. She was provided with a prescription for meclizine. She understands to return for new or worsening symptoms. She was discharged home. ED Disposition - Plan for ED Patient: Disposition: Home or Assisted Living Diagnosis: Vertigo Instructions: ED Vertigo Unspecified Prescriptions: Meclizine HCl [Antivert] 25 mg PO 4X/DAY PRN PRN #20 tab PRN Reason: Dizziness Prescription Printed Referrals: Jef Jimenez MD [Primary Care Provider] -
[2020-03-21 15:40] LABS: Absolute Lymphocyte Count 1.35 X10^3/uL (0.83-4.51); Absolute Neutrophil Count 3.7 X10^3/uL (2.0-7.7); Basophil# 0.01 X10^3/uL; Basophil% 0.2 % (0-1); Eosinophil# 0.04 X10^3/uL; Eosinophils% 0.7 % (0-5); Hematocrit 39.3 % (37-47); Hemoglobin 13.4 g/dL (12.0-15.0); Lymphocyte # 1.35 X10^3/ul (4.0); Lymphocyte % 24.7 % (19-41); Mean Corp Hgb Conc 34.1 g/dL (32-36); Mean Corpuscular Hgb 31.6 pg (27.0-32.0); Mean Corpuscular Volume 92.7 fL (81-99); Mean Platelet Vol. 9.4 fl (6.2-12.0); Monocyte# 0.31 X10^3/uL; Monocyte% 5.7 % (0-10); NRBC Flagged by Analyzer 0 % (0-5); Neutrophil # 3.73 X10^3/uL (2.7-7.7); Neutrophil % 68.3 % (47-70); Platelet Count 218 K/mm3 (150-450); RBC Distribution Width CV 13.2 % (11.6-14.6); RBC Distribution Width SD 44.1 fl (35.1-43.9); Red Blood Count 4.24 M/mm3 (4.2-5.4); White Blood Count 5.5 K/mm3 (4.4-11.0)
[2020-03-21 16:01] LABS: Anion Gap 6 (5-15); BUN 13 mg/dL (7-18); BUN/Creat Ratio 18.8 RATIO (10-20); Chloride 112 mmol/L (98-107); Creatinine, Serum 0.69 mg/dL (0.55-1.02); EST Glomerular Filtration Rate 92 mL/min (>60); Est Glom Filt Rate - Afr Amer 111 mL/min (>60); Estimated Creatinine Clearance 76.74 ml/min; Glucose 119 mg/dL (74-106); Potassium 3.6 mmol/L (3.5-5.1); Sodium Level 143 mmol/L (136-145)
[2020-03-21] MEDS: Meclizine HCl 25 MG Tablet PO (16:09)
[2020-03-21] MEDS: 0.9% Normal Saline 1,000 ML 999 ML IV (16:09)
[2020-03-21] MEDS: Ondansetron 4 MG/2 ML Vial IV (16:09)
[2020-03-21 16:55] VITALS: BP 132/77; PULSE 73; RESP 16; RESP 24
== END 2020-03-21 16:59 | disposition home or self-care (01) ==
PROVIDERS: Emergency Provider Emergency Medicine; PCP Family Medicine
DX: R42 Dizziness and giddiness (principal); Z87.891 Personal history of nicotine dependence
CPT/HCPCS: 80048; 84484; 85025; 93005; 96374; 99284; J7030; A4216; J2405

== ENCOUNTER 2020-05-07 14:16 | Emergency (ER) | payer MEDICAID, SELFPAY ==
[2020-05-07 14:16] VITALS: BP 124/97; PULSE 83; RESP 18; TEMP 36.6; O2SAT 98; BMI 24.9
--- NOTE | 2020-05-07 15:00 | ED.VIS.GEN ---
History of Present Illness Chief Complaint: Allergic Reaction Narrative: This patient is a 60-year-old female who presents after a bee sting to her right thigh. 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 She developed a local allergic reaction with redness and swelling to the front of her thigh. She had complained of some chest tightness earlier which has since resolved. Currently she denies any chest pain difficulty breathing no nausea no vomiting. No urticaria. Past Medical History - Allergies and Home Meds Allergies/Adverse Reactions: Allergies adhesive tape Allergy (Verified 05/07/20 14:20) Rash etodolac Allergy (Verified 05/07/20 14:20) Hives varenicline tartrate [From Chantix] Allergy (Verified 05/07/20 14:20) Unknown venom-honey bee Allergy (Verified 05/07/20 14:20) Other tramadol Adverse Reaction (Verified 05/07/20 14:20) Upset Stomach Primary Care Physician: Jef Jimenez MD [Primary Care Provider] - Past Medical History: None Surgical History: noncontributory Smoking Status: Former smoker Review of Systems All systems negative except as indicated General: Denies: Fever Eyes: Denies: Visual changes - bilaterally Cardiovascular: Denies: Chest pain Respiratory: Denies: Dyspnea Gastrointestinal: Denies: Nausea, Vomiting Musculoskeletal: Denies: Myalgias, Arthralgias Skin: Reports: Rash Neurological: Denies: Headache Hematologic: Denies: Easy bruising Allergy: Denies: Uticaria Physical Exam Vital Signs/Narrative: Vital Signs Temp Pulse Resp BP Pulse Ox 05/07/20 14:16 97.8 F 83 18 124/97 H 98 Inital Vital Signs reviewed: Yes General: Well nourished Head: Normocephalic Eyes: EOMI ENT: Moist mucous membranes Neck: Supple Cardiovascular: Regular rate Respiratory: No distress, CTA bilaterally. Negative for: Rales, Rhonchi, Wheezing Abdomen: Soft Skin: Normal color, - - Patient has a roughly 15 cm in diameter area of erythema over the anterior right thigh. No streaking not hot to the touch no urticaria Neurological: Alert Psychological: Normal affect Diagnostic/Tx/Re-eval - Medical Decision Making Patient appears to have a localized allergic reaction to the right thigh. She has no evidence of anaphylaxis. She was given a dose of Benadryl and Kenalog and advised on supportive care. She was discharged home. ED Disposition - Plan for ED Patient: Disposition: Home or Assisted Living Diagnosis: Local reaction to bee sting Instructions: ED Insect Sting Local Reaction Referrals: Jef Jimenez MD [Primary Care Provider] -
[2020-05-07] MEDS: Triamcinolone Acetonide 40 MG/ML Vial IM (15:09)
[2020-05-07] MEDS: DiphenhydrAMINE 25 MG Capsule PO (15:09)
== END 2020-05-07 15:39 | disposition home or self-care (01) ==
PROVIDERS: Emergency Provider Emergency Medicine; PCP Family Medicine
DX: R22.41 Localized swelling, mass and lump, right lower limb (principal); T63.441A Toxic effect of venom of bees, accidental (unintentional), initial encounter; Y92.9 Unspecified place or not applicable; Z87.891 Personal history of nicotine dependence
CPT/HCPCS: 96372; 99283

== ENCOUNTER → 2020-07-26 16:23 | Outpatient (CLI) | payer MEDICAID, SELFPAY ==
--- NOTE | 2020-07-26 16:30 | RAD_ITS ---
STUDY: X-RAY - LUMBAR SPINE REASON FOR EXAM: Female, 60 years old. ACUTE LOW BACK PAIN RADIATING TO LEFT LEG TECHNIQUE: 3 view(s) of the lumbar spine were obtained. COMPARISON: None FINDINGS: Normal lumbar lordosis. There is a levoscoliosis of the lumbar spine. There is a normal alignment of the vertebrae. There is multilevel endplate spondylosis of the lumbar vertebrae. There is multi-level degenerative disc disease with multi-level disc space narrowing. The soft tissue structures are unremarkable. RAD/Lumbar Spine 2 or 3 Views IMPRESSION: Mild levoscoliosis with severe degenerative disc disease. Electronically Signed: Calvin Nagy MD at 16:46 EST Tel , Service support ,
== END ==
PROVIDERS: PCP Family Medicine; Referring Provider Anesthesiology Pain Medicine; Visit Provider Anesthesiology Pain Medicine
DX: M54.9 Dorsalgia, unspecified (principal); M79.605 Pain in left leg
CPT/HCPCS: 72100

== ENCOUNTER 2020-09-17 08:44 | Emergency (ER) | payer MEDICAID, SELFPAY ==
[2020-09-17 08:45] VITALS: BP 177/98; PULSE 104; RESP 16; TEMP 35.8; O2SAT 98; BMI 29.2
--- NOTE | 2020-09-17 09:15 | RAD_ITS ---
STUDY: X-RAY - RIGHT SHOULDER REASON FOR EXAM: Female, 60 years old. Injury/Pain TECHNIQUE: 2 view(s) of the shoulder. COMPARISON: None. FINDINGS: Normal glenohumeral articulation. Normal acromioclavicular joint. Normal acromion. Normal humeral head and visualized proximal humerus. The soft tissue structures are unremarkable. Normal visualized pulmonary apex. RAD/Shoulder min 2 Views IMPRESSION: Normal x-ray examination of the shoulder. Electronically Signed: Calvin Nagy MD at 10:09 EST Tel , Service support ,
[2020-09-17] MEDS: Morphine 4 MG/ML Syringe IM (09:37)
--- NOTE | 2020-09-17 10:48 | ED.VIS.UPPEX ---
History of Present Illness Chief Complaint: Upper Extremity Injury Informant: Patient Occurred: Today Mechanism/Context: Fall Onset: Today Context: Sudden Onset Quality of Pain: Sharp Narrative: Patient is a 60-year-old female that denies any significant past medical history presenting with severe right arm pain. Patient is right-hand dominant. Patient states she was mopping this morning when she slipped and fell. Her arm was behind her and she landed on her shoulder. She is concerned that she either broke something in her arm/shoulder or tore something. She states she cannot move her arm. She is having significant pain in the shoulder region. She denies any numbness or tingling of her hand or distal arm. No other complaints at this time. Past Medical History - Allergies and Home Meds Allergies/Adverse Reactions: Allergies adhesive tape Allergy (Verified 09/17/20 08:45) Rash etodolac Allergy (Verified 09/17/20 08:45) Hives varenicline tartrate [From Chantix] Allergy (Verified 09/17/20 08:45) Unknown venom-honey bee Allergy (Verified 09/17/20 08:45) Other tramadol Adverse Reaction (Verified 09/17/20 08:45) Upset Stomach Primary Care Physician: Princess Gonzalez DO [STAFF PHYSICIAN] - Jef Jimenez MD [Primary Care Provider] - Past Medical History: None Surgical History: noncontributory Smoking Status: Former smoker Review of Systems General: Denies: Chills, Fever, Sweats Eyes: Denies: Visual changes - bilaterally, Diplopia ENT: Denies: Rhinorrhea, Sore throat Cardiovascular: Denies: Chest pain, Palpitations Respiratory: Denies: Dyspnea, Cough, Dyspnea on exertion Gastrointestinal: Denies: Abdominal pain, Nausea, Vomiting Genitourinary: Denies: Dysuria, Hematuria, Frequency Musculoskeletal: Reports: Extremity Pain - right shoulder . Denies: Back pain Skin: Denies: Rash, Wounds Neurological: Reports: Weakness - right arm . Denies: Headache, Numbness Physical Exam Vital Signs/Narrative: Vital Signs Temp Pulse Resp BP Pulse Ox 09/17/20 08:45 96.4 F L 104 H 16 177/98 H 98 Inital Vital Signs reviewed: Yes Right Shoulder: Limited ROM - with flexion and abduction. Intact range of motion with extension, adduction and external rotation., - - Tenderness palpation over the anterior and superior rotator cuff. Negative for: Abrasion, Contusion, Deformity Right Humerus: Negative for: Abrasion, Contusion, Deformity, Edema, Hematoma, Limited ROM Right Elbow: Negative for: Abrasion, Contusion, Deformity, Limited ROM Right Hand: - - For many. Normal emergency dept tech strength. Normal movement of the hands including making okay sign, crossing fingers, abduction and adduction of the fingers General: Well nourished, Well developed, - - anxious Head: Normocephalic, Atraumatic Eyes: Perrl, EOMI ENT: No Trauma, Moist Mucous Membranes Neck: Nontender, Full ROM. Negative for: Spinal Tenderness, Paraspinal Tenderness Cardiovascular: Regular rate, Regular rhythm, No murmurs, - - 2+ bilateral radial pulses. Brisk capillary refill. Respiratory: No distress, CTA bilaterally, Chest nontender Abdomen: Soft, Nontender, Nondistended, Normal bowel sounds Back: Nontender Skin: Normal color, No rash Neurological: Alert, Oriented x3, Cranial nerves II-XII grossly intact, Normal Strength, Normal Sensation. Negative for: Parasthesia Psychological: Normal affect Diagnostic/Tx/Re-eval Clinical Impression(s) from Imaging Studies Shoulder X-Ray 09/17/20 09:15 IMPRESSION: Normal x-ray examination of the shoulder. Electronically Signed: Calvin Nagy MD at 10:09 EST Tel , Service support , - Medical Decision Making She is evaluated for right shoulder pain and difficulty moving her arm after slip and fall. I suspect patient might have a rotator cuff injury. She is neuro vastly intact. She does not have any obvious fracture. X-ray does not show any acute abnormality. Physical exam and x-rays not consistent with dislocation. Physical exam is limited secondary to patient's pain and anxiety. Patient is given IM morphine in the ER with improvement of her symptoms, ever I am still struggled to evaluate the shoulder with all planes of movement. Patient was given a sling for comfort. She is counseled that she is to follow-up closely with orthopedics. She is counseled on doing range of motion exercises to prevent frozen shoulder. Discharged home with a short course of [place] for pain control. She is instructed take Colace with it as needed to prevent constipation. Patient is counseled on signs and symptoms requiring return to the emergency room. Patient verbalizes agreement and understand this plan. Patient discharged home in stable and improved condition. ED Disposition - Plan for ED Patient: Disposition: Home or Assisted Living Diagnosis: Injury of right rotator cuff Instructions: ED Rotator Cuff Tear Prescriptions: Hydrocodone Bitart/Apap 5-325 [[place] 5MG-325MG] 1 tab PO Q6H PRN PRN 3 Days #10 tab PRN Reason: Pain Transmission Status: Received by [id number] Referrals: Jef Jimenez MD [Primary Care Provider] - Princess Gonzalez DO [STAFF PHYSICIAN] - Additional Instructions: Perform range of motion exercises of your shoulder a couple times a day to prevent frozen shoulder while wearing the sling. You may also take up to 600 mg of ibuprofen for anti-inflammatory. The [place] prescribed does have Tylenol in it so do not take extra Tylenol with it. It might be beneficial to take a Colace with the [place] to prevent constipation.
[2020-09-17] MEDS: HYDROcodone Bitartrate/Apap 5/325 Tablet PO (11:25)
== END 2020-09-17 11:26 | disposition home or self-care (01) ==
PROVIDERS: Emergency Provider Emergency Medicine; PCP Family Medicine
DX: S46.001A Unspecified injury of muscle(s) and tendon(s) of the rotator cuff of right shoulder, initial encounter (principal); W01.0XXA Fall on same level from slipping, tripping and stumbling without subsequent striking against object, initial encounter; Y93.E5 Activity, floor mopping and cleaning; Y92.9 Unspecified place or not applicable; Y99.9 Unspecified external cause status; Z87.891 Personal history of nicotine dependence
CPT/HCPCS: 73030; 96372; 99283

== ENCOUNTER 2021-02-08 06:01 | Day surgery (SDC) | payer MEDICAID, SELFPAY ==
[2021-02-08 06:30] VITALS: BP 119/77; PULSE 76; RESP 16; TEMP 36.6; O2SAT 97; BMI 29.8
[2021-02-08] MEDS: Lactated Ringers 1,000 ML 100 ML IV (06:46)
--- NOTE | 2021-02-08 06:58 | HP.PCM_ITS ---
HPI - General HPI Narrative CANDACE REYES, is a 60 F who presents with ongoing right heel pain. she has tried stretching, icing, nsaids, inserts but continues to have pain. she had injection several years ago and this helped. she is interested in a subsequent injection. she has anxiety with needles and for this reason, she has elected to pursue injection under sedeation. [facility] Medical History (Updated 02/08/21 @ 07:[address] Timbo Guthrie, EVGENY) Anxiety Asthma Heartburn Seizures Home Medications albuterol sulfate 2.5 mg INHALATION BID 01/17/21 [History Last Taken Unknown] alprazolam 0.5 mg PO TID PRN 01/17/21 [History Last Taken Unknown] omeprazole 20 mg PO DAILY 01/17/21 [History Last Taken Unknown] Allergy/AdvReac Type Severity Reaction Status Date / Time adhesive tape Allergy Rash Verified 01/17/21 11:19 etodolac Allergy Hives Verified 01/17/21 11:19 varenicline tartrate Allergy Unknown Verified 01/17/21 11:19 [From Chantix] venom-honey bee Allergy Other Verified 01/17/21 11:19 tramadol AdvReac Upset Verified 01/17/21 11:19 Stomach Surgical History (Updated 01/17/21 @ 11:30 by Ashlee Peter) Hx of hand surgery Hx of hysterectomy Hx of shoulder surgery Social History Smoking Status: Never smoker Vital Signs Vital Signs Vital Signs: 02/08/21 06:30 Temperature 97.9 F Temperature Source Temporal Pulse Rate 76 Respiratory Rate 16 Respiratory Pattern Normal Blood Pressure 119/77 Blood Pressure Mean 91 Blood Pressure Source Monitor Blood Pressure Position Semi-Fowlers Blood Pressure Location Left Arm Pulse Ox 97 Oxygen Delivery Method Room Air Weight Weight: 78.9 kg Body Mass Index (BMI) 29.8 Physical Exam Narrative patient is alert and orientated x 3. she does not appear in any distress. pain to palpation of right plantar heel. Assessment & Plan Assessment/Plan (1) Plantar fasciitis of right foot: PLAN: Will plan with injection under light sedation due to patient fear of needles. if injection fails to eliminate her pain, consider therapy or property disposal manager, plantar fasciotomy.
--- NOTE | 2021-02-08 07:32 | PCM.DC ---
Discharge Instructions Diet Discharge Diet: No restrictions Activity Discharge Activity: Return to Normal Activity Follow Up Care Please Follow Up With: Timbo Guthrie DPM When: one month Test Results: Test results from this visit will be discussed in further detail at your follow-up appointment, if applicable. Discharge Plan Admission Attending Provider: Timbo Guthrie Primary Care Provider: Jef Jimenez Discharge Orders/Prescriptions Prescriptions: No Action alprazolam 0.5 mg tablet 0.5 mg PO TID PRN (Reason: Anxiety) RF: 0 omeprazole 20 mg capsule,delayed release(DR/EC) 20 mg PO DAILY RF: 0 albuterol sulfate 2.5 mg /3 mL (0.083 %) solution for nebulization 2.5 mg inhalation BID RF: 0
[2021-02-08] MEDS: dexAMETHasone 4 MG/ML Vial (07:39)
[2021-02-08] MEDS: Triamcinolone Acetonide 40 MG/ML Vial (07:39)
[2021-02-08] MEDS: Bupivacaine 0.5% PF 10 ML VIAL (07:39)
--- NOTE | 2021-02-08 07:45 | OP.PCM_ITS ---
Report of Operation Date of Procedure: 02/08/21 Pre-Operative Diagnosis: plantar fasciitis, right foot Post-Operative Diagnosis: plantar fasciitis, right foot Surgery/Procedure Performed:: right plantar fascial injection Description of Surgical Findings:: successful injection to right plantar fascia Surgeon: Timbo Guthrie Type of Anesthesia: MAC/Supplemental Special Medications: 0.5 cc of kenalog 0.5 cc of dexamethasone 0.5 cc of 0.5% marcaine plain Specimen's removed: none Drains: none Estimated Blood Loss (mL): none Description of Procedure: Patient is a pleasant 60 year old female who suffers from right heel pain. she has had right heel pain for several years and did have relief in past with steroid injection performed 3 years ago. she is here today for injection. other treatments for plantar fasciitis currently are in serts, nsaids, stretching but she continues to have pain. she would like to pursue injection. because of anxiety, she has elected to pursue injection under sedeation. I discussed risks of injection not limited to infection, worsening pain, failure to eliminate pain, need for therapy in future or need for fasciotomy. she understands these risks and consents to proceed. patient was transferred to the operating room and placed under sedation. the right lower extremity was prepped sterilly with betadine. a time out was performed making note of the procedure and patient risks. after time out, the right foot was accessed and a sterile injection to the right plantar medial heel consisting of 0.5 cc of 0.5% marcaine plain, 0.5 cc of dexamethasone and 0.5 cc of kenalog was given to the right heel. the foot was then washed with saline and a band aid was applied patient was transferred to pacu where she was found to be in stable condition. she will discharge once discharge criteria met. she will f/u with me in one month or prn.
[2021-02-08 07:47] VITALS: BP 119/77; BP 93/63; PULSE 73; RESP 16; TEMP 35.9; O2SAT 95
[2021-02-08 07:50] VITALS: BP 119/77; BP 98/65; PULSE 75; RESP 16; O2SAT 96
[2021-02-08 07:55] VITALS: BP 119/77; BP 96/62; PULSE 71; RESP 16; O2SAT 93
[2021-02-08 08:00] VITALS: BP 103/65; BP 119/77; PULSE 70; RESP 16; TEMP 35.7; O2SAT 94
[2021-02-08 08:23] VITALS: BP 119/77
== END 2021-02-08 08:24 ==
LOC: SDC 06:02 → AC 06:03
PROVIDERS: PCP Family Medicine; Referring Provider Podiatrist Foot & Ankle Surgery; Visit Provider Podiatrist Foot & Ankle Surgery
PROC: (CPT 20605; principal; 2021-02-08 07:25)
DX: M72.2 Plantar fascial fibromatosis (principal); G40.909 Epilepsy, unspecified, not intractable, without status epilepticus; J45.20 Mild intermittent asthma, uncomplicated; K21.9 Gastro-esophageal reflux disease without esophagitis; F31.9 Bipolar disorder, unspecified; F40.8 Other phobic anxiety disorders; F41.9 Anxiety disorder, unspecified; Z87.891 Personal history of nicotine dependence; Z96.611 Presence of right artificial shoulder joint
CPT/HCPCS: 01991; 20550; J7120

== ENCOUNTER 2022-06-29 18:37 | Emergency (ER) | payer MEDICAID, SELFPAY ==
[2022-06-29 18:38] VITALS: BP 123/73; PULSE 74; RESP 16; TEMP 36.4; O2SAT 96; BMI 22.8
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
== END 2022-06-29 19:08 | disposition home or self-care (01) ==
PROVIDERS: Emergency Provider Emergency Medicine; PCP Family Medicine; Visit Provider Emergency Medicine
DX: S16.1XXA Strain of muscle, fascia and tendon at neck level, initial encounter (principal); S39.012A Strain of muscle, fascia and tendon of lower back, initial encounter; F41.9 Anxiety disorder, unspecified; Z79.899 Other long term (current) drug therapy; V49.40XA Driver injured in collision with unspecified motor vehicles in traffic accident, initial encounter; Z86.16 Personal history of COVID-19
CPT/HCPCS: 99282

== ENCOUNTER 2022-12-24 16:00 | Outpatient (RCR) | payer MEDICAID, SELFPAY ==
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
== END 2022-12-24 19:00 | disposition home or self-care (01) ==
LOC: PT 16:00
PROVIDERS: PCP Family Medicine; Referring Provider Family Medicine; Visit Provider Family Medicine
DX: S16.1XXD Strain of muscle, fascia and tendon at neck level, subsequent encounter (principal); M26.609 Unspecified temporomandibular joint disorder, unspecified side; V89.2XXS Person injured in unspecified motor-vehicle accident, traffic, sequela; S06.0X0D Concussion without loss of consciousness, subsequent encounter; R41.3 Other amnesia
CPT/HCPCS: 97035; 97110; 97129; 97130; 97140; 97162; 97164

== ENCOUNTER 2023-07-08 21:15 | Emergency (ER) | payer MEDICAID, SELFPAY ==
[2023-07-08 21:16] VITALS: BP 138/78; PULSE 74; RESP 15; TEMP 36.1; O2SAT 99
--- NOTE | 2023-07-08 21:32 | EKG12_ITS ---
Test Reason : DIZZY Blood Pressure : / mmHG Vent. Rate : 072 BPM Atrial Rate : 072 BPM P-R Int : 160 ms QRS Dur : 088 ms QT Int : 400 ms P-R-T Axes : 054 027 029 degrees QTc Int : 438 ms Normal sinus rhythm Normal ECG Confirmed by VINCENT DICKENS, JUANITO ([id number]), photography editor DYANA SANTOS ([id number]) on 07/10/2023 10:29:52 AM Referred By: Confirmed By:JUANITO KAUR MD
--- NOTE | 2023-07-08 21:33 | EDS_ITS ---
HPI History of Present Illness Chief Complaint: Dizziness Informant: patient and spouse/S.O. Narrative Narrative: Presents to ED with spouse severe nausea and lightheaded symptoms. States nausea started yesterday worse in his day. No vomiting. Diagnosed with di verticulitis on CT 4 days ago through PCP offices. She had lower abdominal pain 2 days prior to that. She was placed on Levaquin and Flagyl. She denies any alcohol use while being on antibiotics. She has had no nausea initially pain is improved since being on antibiotics. Started having nausea yesterday that worsened. Normal bowel movements. No fevers or chills. No cardiac history. States had diverticulitis prior to this 1 8 to 9 years ago. [facility] Medical History (Updated 07/08/23 @ 22:[address] Sagar Hayes DO) Anxiety Asthma Former smoker Heartburn Osteoporosis Seizures Home Medications albuterol sulfate 2.5 mg/3 mL (0.083 %) solution for nebulization 2.5 mg inhalation BID 01/17/21 [History Last Taken Unknown] alprazolam 0.5 mg tablet 0.5 mg PO TID PRN Anxiety 01/17/21 [History Last Taken Unknown] omeprazole 20 mg capsule,delayed release 20 mg PO DAILY 01/17/21 [History Last Taken Unknown] hyoscyamine sulfate 0.125 mg sublingual tablet (Levsin/SL) 0.125 mg sublingual Q8H PRN abdominal discomfort #10 tabs 07/08/23 [Rx Last Taken Unknown] ondansetron 4 mg disintegrating tablet 4 mg PO Q8H PRN PRN Nausea #10 tabs 07/08/23 [Rx Last Taken Unknown] Allergy/AdvReac Type Severity Reaction Status Date / Time adhesive tape Allergy Rash Verified 07/08/23 21:20 etodolac Allergy Hives Verified 07/08/23 21:20 varenicline tartrate Allergy Unknown Verified 07/08/23 21:20 [From Chantix] venom-honey bee Allergy Other Verified 07/08/23 21:20 tramadol AdvReac Upset Verified 07/08/23 21:20 Stomach Surgical History (Updated 07/08/23 @ 22:13 by Lora Gunter) History of cholecystectomy Hx of hand surgery Hx of hysterectomy Hx of shoulder surgery Social History Smoking Status: Former smoker ROS ROS ED Constitutional Constitutional ED: Denies chills, fever(s) or sweats Eyes Eyes: Denies change in vision ENT ENT ED: Denies dysphagia or sore throat Cardiovascular Cardiovascular: Reports other Details: Lightheaded symptoms ; Denies chest pain, leg edema, palpitations or racing heartbeat Respiratory/Chest Respiratory/Chest: Denies cough, dyspnea or dyspnea on exertion Gastrointestinal Gastrointestinal: Reports nausea; Denies abdominal pain, diarrhea or vomiting Genitourinary Genitourinary ED: Denies dysuria, hematuria or urinary frequency Musculoskeletal Musculoskeletal: Denies back pain, extremity pain or neck pain Integumentary Denies rash or wounds Neurologic Neurologic: Reports other Details: Denies dizzy spinning sensations. ; Denies headache(s), paresthesias or weakness EXAM Physical Exam Const Vital Signs: 07/08/23 21:16 Temperature 97.0 F L Temperature Source Temporal Pulse Rate 74 Respiratory Rate 15 Blood Pressure 138/78 H Blood Pressure Mean 98 Pulse Ox 99 Oxygen Delivery Method Room Air Positive well nourished and well developed General Appearance ED: well developed and NAD HEENT Reports dry mucous membranes normocephalic and atraumatic Mouth ED: Yes dry mucous membranes Mouth: dry mucous membranes Eyes PERRL, EOMs intact bilaterally and conjunctivae normal General Eye ED: Yes normal appearance of both eyes Neck no lymphadenopathy and supple General: Negative for tenderness Chest Wall Chest: Negative for tenderness Resp normal respiratory effort and normal air movement Effort and Inspection: symmetric chest movement; Negative for respiratory distress Cardio regular rate, regular rhythm and no murmurs Peripheral Pulses: pulses 2+ throughout GI normal to inspection, nondistended, normoactive bowel sounds and non-tender GI Narrative: Soft abdomen no guarding or rebound. No tenderness. Palpation: Negative for guarding or rebound tenderness present Back/Spine no CVA tenderness and no thoracic nor lumbar tenderness Extremity normal to inspection General Extremety ED: Negative for edema or tenderness General Extremity: Negative for edema Neuro oriented x3 and no sensory deficits noted Sensorium / Orientation: awake and alert Skin no rashes or lesions noted and no wounds MDM MDM MDM Narrative Medical decision making narrative: Interventions / MDM: Differential diagnosis: Nausea, electrolyte abnormalities, current treatment for diverticulitis Diagnosis considered but do not suspect: N/A My EKG interpretation: Sinus rate of 72, no ST changes, isolated T wave version lead III. Nonspecific. Imaging independently reviewed and interpreted by myself: N/A External documents reviewed: N/A Test considered but not ordered:N/A ED course: Patient uncomfortable with nausea IV established fluids Zofran and labs were drawn. She is nontender and abdomen therefore not concern for any complications of her diverticulitis. After meds were given, reported from nursing having increasing bloating sensations with discomfort in upper abdomen. Ordered for Levsin. 2225: Medicines given she is much more comfortable at this time. Her labs potassium 3.3 normal white count. Creatinine normal there is odium also normal at 139. Order for oral placement potassium and p.o. challenge. 2255: Patient tolerated oral potassium placement and oral challenge. Clinically felt much better. Prescriptions for Levsin and Zofran sent to pharmacy use as needed. Discussed minimal treatment requirement for her diverticulitis is 7 days. She will decrease her medications Flagyl down to 3 times a day as that recommended dosing. Discussed her symptoms likely from medication side effect as she states she is sensitive to medications. She will take the medication with food. All questions were answered. Re-evaluation: stable Disposition discussed with patient/family/significant other: Patient and significant other Case discussed with consulting clinician: N/A This note was generated with [employer], dictation software. It may contain incorrect words, spelling, and punctuation that were not noted in checking the note before signing. Lab Data Attestation: I reviewed the patient's lab results. Labs: Laboratory Results - last 24 hr 07/08/23 21:50 WBC 5.9 RBC 4.40 Hgb 13.2 Hct 40.0 MCV 90.9 MCH 30.0 MCHC 33.0 RDW Std Deviation 42.0 RDW Coeff of Phoebe 12.6 Plt Count 254 MPV 9.1 Immature Gran % (Auto) 0.200 Neut % (Auto) 46.3 L Lymph % (Auto) 38.7 [place] % (Auto) 12.6 H Eos % (Auto) 1.7 Baso % (Auto) 0.5 Absolute Neuts (auto) 2.8 Absolute Lymphs (auto) 2.30 Nucleated RBC % 0 Sodium 139 Potassium 3.3 L Chloride 106 Carbon Dioxide 27.0 Anion Gap 6 BUN 12 Creatinine 0.73 Estim Creat Clear Calc 69.00 Est GFR (MDRD) Af Amer 104 Est GFR (MDRD) Non-Af 86 BUN/Creatinine Ratio 16.4 Glucose 125 H Calcium 9.7 Discharge Plan Triage Chief Complaint: Dizziness ED Provider: Sagar Hayes Dx/Rx/DC Orders Clinical Impression: Medication adverse effect, Nausea, Hypokalemia Instructions: ED Drug Reaction, Other Prescriptions: New ondansetron [ondansetron] 4 mg tablet,disintegrating 4 mg PO Q8H PRN PRN (Reason: Nausea) Qty: 10 0RF hyoscyamine sulfate [Levsin/SL] 0.125 mg tablet, sublingual 0.125 mg sublingual Q8H PRN (Reason: abdominal discomfort) Qty: 10 0RF No Action alprazolam 0.5 mg tablet 0.5 mg PO TID PRN (Reason: Anxiety) Patient Comments: TAKE 1 TABLET BY MOUTH THREE TIMES A DAY NEEDED TO LAST 30 DAYS omeprazole 20 mg capsule,delayed release(DR/EC) 20 mg PO DAILY Patient Comments: TAKE 1 CAPSULE BY MOUTH EVERY DAY albuterol sulfate 2.5 mg /3 mL (0.083 %) solution for nebulization 2.5 mg inhalation BID Primary Care Provider: Jef Jimenez Referrals: Jef Jimenez MD [Primary Care Provider] - Activity Restrictions/Additional Instructions: Your labs are stable white count 5.9. Your sodium 139. Creatinine 0.73. Potassium 3.3 orally replaced. Concern with medication side effects causing your symptoms. Minimal treatment for diverticulitis is 7 days as recommended. May take your medications with food for total of 7 days. You may decrease your Flagyl down to 3 times a day for a total of 7 days from start of medications. Use medications as prescribed for symptoms. Follow-up with your doctor. If symptoms return or not controlled with medications return to the ED for reevaluation. Disposition Disposition: Home, Self Care
[2023-07-08] MEDS: 0.9% Normal Saline (1000mL) 1,000 ML 1000 ML IV (21:53)
[2023-07-08] MEDS: Ondansetron 4 MG/2 ML Vial IV (21:54)
[2023-07-08 22:05] LABS: Absolute Neutrophil Count 2.8 X10^3/uL (2.0-7.7); Basophil# 0.03 X10^3/uL; Basophil% 0.5 % (0-1); Eosinophils% 1.7 % (0-5); Hemoglobin 13.2 g/dL (12.0-15.0); Lymphocyte % 38.7 % (19-41); Mean Corpuscular Volume 90.9 fL (81-99); Mean Platelet Vol. 9.1 fl (6.2-12.0); Monocyte# 0.75 X10^3/uL; Monocyte% 12.6 % (0-10); NRBC Flagged by Analyzer 0 % (0-5); Neutrophil # 2.75 X10^3/uL (2.7-7.7); Neutrophil % 46.3 % (47-70); Platelet Count 254 K/mm3 (150-450); RBC Distribution Width CV 12.6 % (11.6-14.6); White Blood Count 5.9 K/mm3 (4.4-11.0)
[2023-07-08 22:10] VITALS: BMI 28.0
[2023-07-08] MEDS: Hyoscyamine Sulfate 0.125 MG Tablet 0.25 MG SL (22:19)
[2023-07-08 22:20] LABS: Anion Gap 6 (5-15); BUN 12 mg/dL (7-18); BUN/Creat Ratio 16.4 RATIO (10-20); Calcium,Total 9.7 mg/dL (8.5-10.1); Chloride 106 mmol/L (98-107); Creatinine, Serum 0.73 mg/dL (0.55-1.02); EST Glomerular Filtration Rate 86 mL/min (>60); Est Glom Filt Rate - Afr Amer 104 mL/min (>60); Glucose 125 mg/dL (74-106); Potassium 3.3 mmol/L (3.5-5.1); Sodium Level 139 mmol/L (136-145)
[2023-07-08] MEDS: Potassium Chloride Oral Tablet 20 MEQ 40 MEQ PO (22:45)
[2023-07-08 22:56] VITALS: BP 118/89; PULSE 88; RESP 25; TEMP 36.6; O2SAT 97
== END 2023-07-08 23:01 | disposition home or self-care (01) ==
PROVIDERS: Emergency Provider Emergency Medicine; PCP Family Medicine; Visit Provider Emergency Medicine
DX: E87.6 Hypokalemia (principal); R56.9 Unspecified convulsions; R42 Dizziness and giddiness; T50.905A Adverse effect of unspecified drugs, medicaments and biological substances, initial encounter; R11.0 Nausea; K57.92 Diverticulitis of intestine, part unspecified, without perforation or abscess without bleeding; F41.9 Anxiety disorder, unspecified; J45.909 Unspecified asthma, uncomplicated; M81.0 Age-related osteoporosis without current pathological fracture; Z79.899 Other long term (current) drug therapy; Z87.891 Personal history of nicotine dependence
CPT/HCPCS: 80048; 85025; 93005; 96361; 96374; 99284; J2405

== ENCOUNTER 2024-12-01 14:03 | Emergency (ER) | payer MEDICAID, SELFPAY ==
[2024-12-01 14:04] VITALS: BP 132/74; PULSE 100; RESP 15; TEMP 37.1; O2SAT 100; BMI 26.2
--- NOTE | 2024-12-01 14:50 | VDLE_ITS ---
Reason For Study Reason For Study: BLE Pain RIGHT LEFT Unable to acquire color or pulsed wave dopplers. Unable to acquire color or pulsed wave dopplers at Unable to visualize CFV or Prox GSV. CFV and FV Prox and Dist FV appear compressible Unable to visualize CFV Pop V appears compressible GSV appears compressible. T/P Trunk appears compressible Prox and Dist FV appear compressible PTV appears compressible Pop V appears compressible and competent with normal Erick Vein appears compressible augmentation. All veins visualized in segments. T/P Trunk appears compressible Procedure PTV appears compressible Exam performed portable in ED. Erick Vein appears compressible Limited views were obtained. All veins visualized in segments. The exam was non-diagnostic due to inability to thoroughly assess veins. Vessels were only visualized in segments. Patient less than 4 hours post op and legs were swollen. Echoes unable to penetrate fluid in BLE. A preliminary report was called and/or faxed to Dr. Hayes. VL/Venous Duplex US - Cameron Extrem Interpretation Summary Deep veins of the bilateral lower extremities are patent and compressible segme ntally. There is no evidence of bilateral lower extremity deep vein thrombosis. The bilateral great saphenous veins appea r patent and compressible segmentally. Very limited study Ordering Physician: Sagar Hayes Referring Physician: MD Tony Jef Performed By: Alirio Jarvis RVT
--- NOTE | 2024-12-01 14:51 | ED.VIS.LOWEX ---
HPI History of Present Illness Chief Complaint: Lower Extremity Injury Informant: patient and spouse/S.O. Narrative Narrative: Presents ED with spouse noticed swelling bilateral lower legs after returning from hospital an hour ago. Patient had laparoscopic abdominal surgery [facility] by Dr. Mary Mcdonald. 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 States due to delays in surgeries prior to her planned time of surgery, it went late therefore she was kept overnight. She denies chest pains or shortness of breath. Postsurgical abdominal pain 7 out of 10 she states she has prescriptions for symptoms. She noted swelling feels tightness and pain in her legs called her surgeon was told to the nearest ED to rule out DVT. She is currently not on any blood thinners. No history of DVTs. Prior similar symptoms: No PFSH PFSH Medical History Osteoporosis Former smoker Anxiety Seizures Heartburn Asthma Home Medications ?Medication ?Instructions ?Recorded ?Last Taken ?Type albuterol sulfate 2.5 mg/3 mL 2.5 mg inhalation BID PRN 01/17/21 Unknown History (0.083 %) solution for nebulization bronchospasm omeprazole 20 mg capsule,delayed 20 mg PO DAILY PRN acid reflux 01/17/21 11/29/24 History release acetaminophen 500 mg tablet 500 mg PO Q6H PRN fever or pain 12/01/24 Unknown History ibuprofen 600 mg tablet 600 mg PO Q6H PRN fever or pain 12/01/24 Unknown History Allergy/AdvReac Type Severity Reaction Status Date / Time adhesive tape Allergy Rash Verified 12/01/24 14:06 etodolac Allergy Hives Verified 12/01/24 14:06 varenicline tartrate (From Allergy Unknown Verified 12/01/24 14:06 Chantix) venom-honey bee Allergy Other Verified 12/01/24 14:06 tramadol AdvReac Upset Verified 12/01/24 14:06 Stomach Surgical History History of cholecystectomy Hx of hysterectomy Hx of shoulder surgery Hx of hand surgery Social History Smoking Status: Former smoker ROS ROS ED Constitutional Constitutional ED: Denies chills, fever(s) or sweats ENT ENT ED: Denies sore throat Cardiovascular Cardiovascular: Denies chest pain, leg edema, palpitations or racing heartbeat Respiratory/Chest Respiratory/Chest: Denies cough, dyspnea or dyspnea on exertion Gastrointestinal Gastrointestinal: Denies abdominal pain, diarrhea, nausea or vomiting Genitourinary Genitourinary ED: Denies dysuria, hematuria or urinary frequency Musculoskeletal Musculoskeletal: Reports extremity pain; Denies back pain or neck pain Integumentary Denies rash or wounds Neurologic Neurologic: Denies headache(s), paresthesias or weakness EXAM Physical Exam Const Vital Signs: 12/01/24 14:04 Temperature 98.7 F Temperature Source Oral Pulse Rate 100 Respiratory Rate 15 Blood Pressure 132/74 H Blood Pressure Mean 93 Pulse Ox 100 Oxygen Delivery Method Room Air Positive well nourished and well developed General Appearance ED: well developed and NAD HEENT Reports moist mucous membranes normocephalic and atraumatic Eyes General Eye ED: Yes normal appearance of both eyes Neck full ROM Chest Wall Chest: Negative for tenderness Resp normal respiratory effort and normal air movement Effort and Inspection: symmetric chest movement; Negative for respiratory distress Cardio regular rate, regular rhythm and no murmurs Peripheral Pulses: pulses 2+ throughout GI normal to inspection, nondistended, normoactive bowel sounds GI Narrative: Laparoscopic incisions clean, dry, intact. Nondistended Palpation: Negative for guarding or rebound tenderness present Extremity normal to inspection Extremity Narrative: No objective swelling noted of the legs, mild calf pain right greater than left. Pulses are intact distally bilaterally. General Extremety ED: Yes tenderness Neuro oriented x3 and no sensory deficits noted Sensorium / Orientation: awake and alert Skin no rashes or lesions noted and no wounds MDM MDM MDM Narrative Medical decision making narrative: Interventions / MDM: Differential diagnosis: Peripheral edema, postop pain Diagnosis considered but do not suspect: No clinical arterial thrombus, no distal DVT, no clinical infection concerns for necrotizing fasciitis. My EKG interpretation: N/A Imaging independently reviewed and interpreted by myself: DVT studies lower extremities: Unable to evaluate proximal legs due to edema with fluid. There is no distal DVT. External documents reviewed: N/A Test considered but not ordered:N/A ED course: Patient good pulses distally. Postop discharge today. Will obtain DVT studies for further evaluation. Ultrasound inconclusive there is no distal DVT unable to visualize proximal legs due to edema per mobile lab technician. Very low suspicion for DVT she had delayed surgery with fluids running. Patient reassured. She will have restrictions per her surgeon postop. She will continue to ambulate. She will elevate when she is sitting or laying down. I discussed if she has pain persist after 1 week, may need reultrasound. She understands. All questions were answered. Re-evaluation: stable Disposition discussed with patient/family/significant other: Patient significant other Case discussed with consulting clinician: N/A This note was generated with [employer] dictation software. It may contain incorrect words, spelling, and punctuation that were not noted in checking the note before signing. Radiography Diagnostic Testing: Clinical Impression(s) from Imaging Studies Venous Doppler Study 12/01/24 14:50 Interpretation Summary Deep veins of the bilateral lower extremities are patent and compressible segmentally. There is no evidence of bilateral lower extremity deep vein thrombosis. The bilateral great saphenous veins appear patent and compressible segmentally. Very limited study Ordering Physician: Sagra Hayes Referring Physician: MD Jef Jimenez Performed By: Alirio Jarvis Kevin Discharge Plan Triage Chief Complaint: Lower Extremity Injury ED Provider: Sagar Hayes Dx/Rx/DC Orders Clinical Impression: Edema, peripheral, Post-op pain Instructions: ED Peripheral Edema, Bilateral Prescriptions: No Action omeprazole 20 mg capsule,delayed release(DR/EC) 20 mg PO DAILY PRN (Reason: acid reflux) albuterol sulfate 2.5 mg /3 mL (0.083 %) solution for nebulization 2.5 mg inhalation BID PRN (Reason: bronchospasm) acetaminophen 500 mg tablet 500 mg PO Q6H PRN (Reason: fever or pain) ibuprofen 600 mg tablet 600 mg PO Q6H PRN (Reason: fever or pain) Primary Care Provider: Jef Jimenez Referrals: Jef Jimenez MD [Primary Care Provider] - Activity Restrictions/Additional Instructions: Your ultrasound both legs inconclusive in the upper thighs, negative for DVT from the knee down. Low suspicion for DVT. Edema noted for ultrasound upper legs. No signs of infection. Continue to ambulate elevate when laying down. If still has discomfort after a week, have your doctor reultrasound. Print Language: Niuean Disposition Disposition: Home, Self Care Discharge Date/Time: 12/01/24 15:58
== END 2024-12-01 15:58 | disposition home or self-care (01) ==
PROVIDERS: Emergency Provider Emergency Medicine; PCP Family Medicine; Visit Provider Emergency Medicine
DX: M79.89 Other specified soft tissue disorders (principal); G89.18 Other acute postprocedural pain; M79.605 Pain in left leg; M79.604 Pain in right leg; J45.909 Unspecified asthma, uncomplicated; Z87.891 Personal history of nicotine dependence; Z79.51 Long term (current) use of inhaled steroids; Z79.899 Other long term (current) drug therapy
CPT/HCPCS: 93970; 99282